=== PATIENT | female | born 1970 | race Caucasian/White ===

== ENCOUNTER → 2016-04-18 | Outpatient (CLI) | payer OTHER ==
[2016-04-18 14:05] LABS: ALBUMIN 3.8 GM/DL (3.2-5.2); ALBUMIN/GLOBULIN RATIO 1.12 (1.00-1.93); ALKALINE PHOSPHATASE 67 U/L (45-117); ALT/SGPT 25 U/L (12-78); ANION GAP 9 MEQ/L (8-16); AST/SGOT 13 U/L (15-37); BILIRUBIN,TOTAL 0.2 MG/DL (0.2-1.0); BLOOD UREA NITROGEN 21 MG/DL (7-18); CALCIUM LEVEL 9.3 MG/DL (8.5-10.1); CARBON DIOXIDE LEVEL 29 MEQ/L (21-32); CHLORIDE LEVEL 102 MEQ/L (98-107); CHOLESTEROL LEVEL 254 MG/DL (<200); CREATININE FOR GFR 0.98 MG/DL (0.55-1.02); GLOMERULAR FILTRATION RATE > 60.0 (>58); GLUCOSE, FASTING 99 MG/DL (70-105); SODIUM LEVEL 140 MEQ/L (136-145); TOTAL PROTEIN 7.2 GM/DL (6.4-8.2); TRIGLYCERIDES LEVEL 323 MG/DL (<150)
== END ==
LOC: M WUC 08:59
PROVIDERS: ATTEND Family Medicine
DX: E78.2 Mixed hyperlipidemia (principal)

== ENCOUNTER → 2016-05-17 | Outpatient (CLI) | payer OTHER ==
[2016-05-17 13:12] LABS: FREE T4 0.94 NG/DL (0.76-1.46)
== END ==
LOC: M WUC 10:02
PROVIDERS: ATTEND Internal Medicine Endocrinology, Diabetes & Metabolism
DX: E06.3 Autoimmune thyroiditis (principal)

== ENCOUNTER → 2016-07-15 | Outpatient (CLI) | payer OTHER | LOC: M WUC 08:34 | PROVIDERS: ATTEND Physician Assistant | DX: E55.9 Vitamin D deficiency, unspecified (principal); E78.2 Mixed hyperlipidemia ==

== ENCOUNTER → 2016-07-19 | Outpatient (REF) | payer OTHER | LOC: M LAB REF 15:55 | PROVIDERS: ATTEND Family Medicine | DX: J02.0 Streptococcal pharyngitis (principal) ==

== ENCOUNTER → 2016-09-05 | Outpatient (CLI) | payer OTHER ==
[2016-09-05 17:31] LABS: ESTRADIOL 131.8 PG/ML; FREE T4 0.82 NG/DL (0.76-1.46); LUTEINIZING HORMONE 21.2 mIU/mL; PROGESTERONE 0.2 NG/ML; PROLACTIN 8.4 NG/ML; THYROXINE (T4) 7.2 UG/DL (4.5-12.0)
[2016-09-05 17:32] LABS: FOLLICLE STIMULATING HORMONE 24.5 mIU/mL
== END ==
LOC: M WUC 12:08
PROVIDERS: ATTEND Internal Medicine Endocrinology, Diabetes & Metabolism
DX: N92.6 Irregular menstruation, unspecified (principal); E06.3 Autoimmune thyroiditis

== ENCOUNTER → 2017-03-22 | Outpatient (REF) | payer OTHER ==
[2017-03-22 16:33] LABS: APPEARANCE, URINE CLEAR (CLEAR); BACTERIA, URINE AUTO 1+ (NEGATIVE); BILIRUBIN, URINE AUTO NEGATIVE (NEGATIVE); BLOOD, URINE BLOOD NEGATIVE (NEGATIVE); COLOR, URINE YELLOW (YELLOW); GLUCOSE, URINE (UA) AUTO NEGATIVE (NEGATIVE); KETONE, URINE AUTO NEGATIVE (NEGATIVE); LEUKOCYTE ESTERASE, URINE AUTO TRACE (NEGATIVE); NITRITE, URINE AUTO NEGATIVE (NEGATIVE); PROTEIN, URINE AUTO NEGATIVE (NEGATIVE); RBC, URINE AUTO 0 /HPF (0-3); SPECIFIC GRAVITY URINE AUTO 1.008 (1.002-1.035); SQUAMOUS EPITHELIAL CELL UR AU 1 /HPF (0-6); UROBILINOGEN, URINE AUTO 0.2 mg/dL (0.0-2.0); WBC, URINE AUTO 4 /HPF (0-3)
== END ==
LOC: M LAB 15:46
DX: N39.0 Urinary tract infection, site not specified (principal)
CPT/HCPCS: 81001

== ENCOUNTER → 2017-03-24 | Outpatient (CLI) | payer OTHER ==
[2017-03-24 17:29] LABS: FOLLICLE STIMULATING HORMONE 76.4 mIU/mL; LUTEINIZING HORMONE 30.9 mIU/mL; TOTAL 25(OH) VITAMIN D 27.7 NG/ML (30.0-100.0)
[2017-03-24 17:39] LABS: ALBUMIN 4.3 GM/DL (3.2-5.2); ALBUMIN/GLOBULIN RATIO 1.34 (1.00-1.93); ALKALINE PHOSPHATASE 61 U/L (45-117); ALT/SGPT 53 U/L (12-78); AMYLASE 52 U/L (25-115); ANION GAP 6 MEQ/L (8-16); AST/SGOT 24 U/L (7-37); BILIRUBIN,TOTAL 0.2 MG/DL (0.2-1.0); BLOOD UREA NITROGEN 21 MG/DL (7-18); CALCIUM LEVEL 9.9 MG/DL (8.5-10.1); CARBON DIOXIDE LEVEL 30 MEQ/L (21-32); CHLORIDE LEVEL 105 MEQ/L (98-107); CREATININE FOR GFR 0.84 MG/DL (0.55-1.02); FREE T4 1.18 NG/DL (0.76-1.46); GLOMERULAR FILTRATION RATE > 60.0 (>58); GLUCOSE, FASTING 96 MG/DL (70-100); LIPASE 142 U/L (73-393); POTASSIUM SERUM 4.2 MEQ/L (3.5-5.1); SODIUM LEVEL 141 MEQ/L (136-145); TOTAL PROTEIN 7.5 GM/DL (6.4-8.2)
[2017-03-24 17:47] LABS: HEMATOCRIT 39.6 % (36.0-47.0); HEMOGLOBIN 12.8 g/dl (12.0-16.0); MEAN CORPUSCULAR HEMOGLOBIN 28.3 pg (27.0-33.0); MEAN CORPUSCULAR HGB CONC 32.3 g/dl (32.0-36.5); MEAN CORPUSCULAR VOLUME 87.4 fl (80.0-96.0); PLATELET COUNT, AUTOMATED 328 10^3/uL (150-450); RED BLOOD COUNT 4.53 10^6/uL (4.00-5.40); WHITE BLOOD COUNT 5.6 10^3/uL (4.0-10.0)
[2017-03-24 18:52] LABS: ESTIMATED AVERAGE GLUCOSE 123 MG/DL (60-110); HEMOGLOBIN A1c 5.9 %
== END ==
LOC: M WUC 11:46
DX: N91.1 Secondary amenorrhea (principal); R10.11 Right upper quadrant pain; Z13.1 Encounter for screening for diabetes mellitus; E55.9 Vitamin D deficiency, unspecified; Z13.0 Encounter for screening for diseases of the blood and blood-forming organs and certain disorders involving the immune mechanism
CPT/HCPCS: 82150

== ENCOUNTER → 2017-04-02 | Outpatient (REF) | payer OTHER | LOC: M LAB REF 13:05 | DX: R30.0 Dysuria (principal) ==

== ENCOUNTER → 2017-09-09 | Outpatient (REF) | payer OTHER ==
[2017-09-11 14:44] LABS: HPV HYBRID CAPTURE II Negative (Negative)
== END ==
LOC: M LAB REF 11:07
DX: Z01.419 Encounter for gynecological examination (general) (routine) without abnormal findings (principal); Z11.51 Encounter for screening for human papillomavirus (HPV)

== ENCOUNTER → 2017-09-12 | Outpatient (CLI) | payer OTHER ==
[2017-09-12 07:34] LABS: ESTIMATED AVERAGE GLUCOSE 126 MG/DL (60-110)
[2017-09-12 08:09] LABS: CHOLESTEROL LEVEL 312 MG/DL (<200); FREE T4 0.81 NG/DL (0.76-1.46); HDL CHOLESTEROL 39 MG/DL (>40); NON-HDL-C 273 MG/DL; TRIGLYCERIDES LEVEL 475 MG/DL (<150)
[2017-09-12 09:42] LABS: LUTEINIZING HORMONE 30.4 mIU/mL; PROLACTIN 9.3 NG/ML
[2017-09-12 09:43] LABS: ESTRADIOL 28.7 PG/ML; FOLLICLE STIMULATING HORMONE 56.8 mIU/mL
[2017-09-15 08:58] LABS: GLUCOSE, FASTING 118 MG/DL (70-100)
== END ==
LOC: M LAB 06:33
DX: N91.2 Amenorrhea, unspecified (principal)
CPT/HCPCS: 83001

== ENCOUNTER → 2018-01-01 | Outpatient (REF) | payer OTHER ==
[2018-01-01 14:02] LABS: BASO % 0.4 % (0.0-1.0); EOS # 0.1 10^3/uL (0.0-0.50); EOS % 1.1 % (0.0-3.0); HEMATOCRIT 41.4 % (36.0-47.0); HEMOGLOBIN 13.4 g/dl (12.0-15.5); IMMATURE GRANULOCYTE % 0.1 % (0-3.0); LYMPH # 1.4 10^3/uL (1.5-4.5); LYMPH % 18.6 % (24.0-44.0); MEAN CORPUSCULAR HEMOGLOBIN 27.7 pg (27.0-33.0); MEAN CORPUSCULAR HGB CONC 32.4 g/dl (32.0-36.5); MEAN CORPUSCULAR VOLUME 85.7 fl (80.0-96.0); MONO # 0.3 10^3/uL (0.0-0.8); MONO % 4.3 % (0.0-5.0); NEUTROPHILS # 5.6 10^3/uL (1.8-7.7); NEUTROPHILS % 75.5 % (36.0-66.0); PLATELET COUNT, AUTOMATED 322 10^3/uL (150-450); RED BLOOD COUNT 4.83 10^6/uL (4.00-5.40); RED CELL DISTRIBUTION WIDTH 11.7 % (11.5-14.5); WHITE BLOOD COUNT 7.4 10^3/uL (4.0-10.0)
[2018-01-01 14:13] LABS: ALBUMIN 4.7 GM/DL (3.2-5.2); ALBUMIN/GLOBULIN RATIO 1.31 (1.00-1.93); ALKALINE PHOSPHATASE 59 U/L (45-117); ALT/SGPT 29 U/L (12-78); ANION GAP 7 MEQ/L (8-16); AST/SGOT 13 U/L (7-37); BILIRUBIN,TOTAL 0.3 MG/DL (0.2-1.0); BLOOD UREA NITROGEN 21 MG/DL (7-18); CALCIUM LEVEL 9.8 MG/DL (8.5-10.1); CARBON DIOXIDE LEVEL 28 MEQ/L (21-32); CHLORIDE LEVEL 103 MEQ/L (98-107); CREATININE FOR GFR 0.74 MG/DL (0.55-1.30); GLOMERULAR FILTRATION RATE > 60.0 (>58); GLUCOSE, FASTING 111 MG/DL (70-100); POTASSIUM SERUM 4.3 MEQ/L (3.5-5.1); SODIUM LEVEL 138 MEQ/L (136-145); TOTAL PROTEIN 8.3 GM/DL (6.4-8.2)
[2018-01-01 14:46] LABS: ESTIMATED AVERAGE GLUCOSE 111 MG/DL (60-110); HEMOGLOBIN A1c 5.5 %
[2018-01-02 14:27] LABS: INSULIN LEVEL 23.1 uIU/mL (2.6-24.9)
== END ==
LOC: M LABDRAW1 13:43
DX: R73.03 Prediabetes (principal); M54.2 Cervicalgia; R59.0 Localized enlarged lymph nodes

== ENCOUNTER → 2018-09-25 | Outpatient (CLI) | payer OTHER ==
[2018-09-25 12:15] LABS: HEMOGLOBIN A1c 5.5 %
[2018-09-25 12:33] LABS: ALT/SGPT 36 U/L (12-78); BILIRUBIN,TOTAL 0.2 MG/DL (0.2-1.0); BLOOD UREA NITROGEN 20 MG/DL (7-18); CALCIUM LEVEL 9.4 MG/DL (8.5-10.1); CARBON DIOXIDE LEVEL 30 MEQ/L (21-32); CHLORIDE LEVEL 105 MEQ/L (98-107); CHOLESTEROL LEVEL 258 MG/DL (<200); CREATININE FOR GFR 0.85 MG/DL (0.55-1.30); FREE T4 0.89 NG/DL (0.76-1.46); GLOMERULAR FILTRATION RATE > 60.0 (>58); GLUCOSE, FASTING 103 MG/DL (70-100); HDL CHOLESTEROL 55 MG/DL (>40); LDL CHOLESTEROL 175 MG/DL (<100); NON-HDL-C 203 MG/DL; POTASSIUM SERUM 4.7 MEQ/L (3.5-5.1); SODIUM LEVEL 140 MEQ/L (136-145); TOTAL PROTEIN 7.1 GM/DL (6.4-8.2); TRIGLYCERIDES LEVEL 141 MG/DL (<150)
== END ==
LOC: M SMT 09:32
PROVIDERS: ATTEND Physician Assistant
DX: R73.03 Prediabetes (principal); E06.3 Autoimmune thyroiditis

== ENCOUNTER → 2019-02-07 | Outpatient (REF) | payer OTHER | LOC: M LAB REF 11:43 | PROVIDERS: ATTEND Nurse Practitioner Family | DX: R05 Cough (principal) ==

== ENCOUNTER → 2019-03-02 | Outpatient (CLI) | payer OTHER ==
[2019-03-02 18:14] LABS: HEMOGLOBIN A1c 5.5 %
[2019-03-02 18:31] LABS: ALT/SGPT 47 U/L (12-78); BILIRUBIN,TOTAL 0.3 MG/DL (0.2-1.0); BLOOD UREA NITROGEN 20 MG/DL (7-18); CALCIUM LEVEL 9.1 MG/DL (8.5-10.1); CARBON DIOXIDE LEVEL 27 MEQ/L (21-32); CHLORIDE LEVEL 105 MEQ/L (98-107); CREATININE FOR GFR 0.84 MG/DL (0.55-1.30); FREE T4 1.15 NG/DL (0.76-1.46); GLOMERULAR FILTRATION RATE > 60.0 (>58); GLUCOSE, FASTING 87 MG/DL (70-100); POTASSIUM SERUM 4.6 MEQ/L (3.5-5.1); SODIUM LEVEL 140 MEQ/L (136-145); TOTAL PROTEIN 7.4 GM/DL (6.4-8.2)
== END ==
LOC: M WUC 11:47
PROVIDERS: ATTEND Family Medicine
DX: R73.03 Prediabetes (principal); E06.3 Autoimmune thyroiditis

== ENCOUNTER → 2019-04-06 | Outpatient (CLI) | payer OTHER ==
[2019-04-06 18:32] LABS: BASO % 0.6 % (0.0-1.0); EOS # 0.4 10^3/uL (0.0-0.5); EOS % 5.9 % (0.0-3.0); HEMATOCRIT 37.7 % (36.0-47.0); LYMPH # 2.4 10^3/uL (1.5-5.0); LYMPH % 37.7 % (24.0-44.0); MEAN CORPUSCULAR HEMOGLOBIN 28.3 pg (27.0-33.0); MEAN CORPUSCULAR HGB CONC 31.8 g/dl (32.0-36.5); MEAN CORPUSCULAR VOLUME 88.9 fl (80.0-96.0); MONO # 0.5 10^3/uL (0.0-0.8); MONO % 7.5 % (0.0-5.0); PLATELET COUNT, AUTOMATED 283 10^3/uL (150-450); RED BLOOD COUNT 4.24 10^6/uL (4.00-5.40); WHITE BLOOD COUNT 6.2 10^3/uL (4.0-10.0)
== END ==
LOC: M WUC 15:26
PROVIDERS: ATTEND Physician Assistant
DX: H92.02 Otalgia, left ear (principal)

== ENCOUNTER → 2019-09-03 | Outpatient (CLI) | payer OTHER ==
[2019-09-03 12:38] LABS: HEMOGLOBIN A1c 5.3 %
[2019-09-03 13:00] LABS: MALB URINE SIEMENS 27.9 MG/L; MAU/CREAT RATIO 15.8 MCG/MG (0.0-30.0)
[2019-09-03 13:11] LABS: BLOOD UREA NITROGEN 19 MG/DL (7-18); CALCIUM LEVEL 9.4 MG/DL (8.5-10.1); CARBON DIOXIDE LEVEL 27 MEQ/L (21-32); CHLORIDE LEVEL 107 MEQ/L (98-107); CHOLESTEROL LEVEL 267 MG/DL (<200); CHOLESTEROL RISK RATIO 5.235 (<5); CREATININE FOR GFR 0.79 MG/DL (0.55-1.30); GLOMERULAR FILTRATION RATE > 60.0 (>58); GLUCOSE, FASTING 106 MG/DL (70-100); HDL CHOLESTEROL 51 MG/DL (>40); LDL CHOLESTEROL 185 MG/DL (<100); NON-HDL-C 216 MG/DL; POTASSIUM SERUM 4.5 MEQ/L (3.5-5.1); SODIUM LEVEL 139 MEQ/L (136-145); THYROID STIMULATING HORMONE 0.732 uIU/ML (0.358-3.740); TRIGLYCERIDES LEVEL 154 MG/DL (<150)
== END ==
LOC: M WUC 10:52
PROVIDERS: ATTEND Internal Medicine
DX: R73.09 Other abnormal glucose (principal); E03.8 Other specified hypothyroidism; E04.2 Nontoxic multinodular goiter

== ENCOUNTER → 2019-09-03 | Outpatient (CLI) | payer OTHER ==
[2019-09-03 12:21] LABS: BASO % 0.8 % (0.0-1.0); EOS # 0.2 10^3/uL (0.0-0.5); EOS % 3.1 % (0.0-3.0); HEMATOCRIT 39.5 % (36.0-47.0); HEMOGLOBIN 12.9 g/dl (12.0-15.5); LYMPH # 2.1 10^3/uL (1.5-5.0); LYMPH % 40.1 % (24.0-44.0); MEAN CORPUSCULAR HEMOGLOBIN 28.5 pg (27.0-33.0); MEAN CORPUSCULAR HGB CONC 32.7 g/dl (32.0-36.5); MEAN CORPUSCULAR VOLUME 87.2 fl (80.0-96.0); MONO # 0.5 10^3/uL (0.0-0.8); MONO % 8.9 % (0.0-5.0); NEUTROPHILS # 2.4 10^3/uL (1.5-8.5); NEUTROPHILS % 46.9 % (36.0-66.0); PLATELET COUNT, AUTOMATED 280 10^3/uL (150-450); RED BLOOD COUNT 4.53 10^6/uL (4.00-5.40); WHITE BLOOD COUNT 5.2 10^3/uL (4.0-10.0)
== END ==
LOC: M WUC 10:48
PROVIDERS: ATTEND Family Medicine
DX: Z13.0 Encounter for screening for diseases of the blood and blood-forming organs and certain disorders involving the immune mechanism (principal)

== ENCOUNTER → 2020-11-30 | Outpatient (REF) | payer OTHER ==
[~2020-11-30] MED LIST: CIPR-249 PO; IBUP1TAB5 PO; SYNT112T2 PO
[2020-11-30 22:30] LABS: APPEARANCE, URINE CLEAR (CLEAR); BACTERIA, URINE AUTO NEGATIVE (NEGATIVE); BILIRUBIN, URINE AUTO NEGATIVE (NEGATIVE); BLOOD, URINE BLOOD NEGATIVE (NEGATIVE); COLOR, URINE YELLOW (YELLOW); GLUCOSE, URINE (UA) AUTO NEGATIVE (NEGATIVE); KETONE, URINE AUTO TRACE mg/dL (NEGATIVE); LEUKOCYTE ESTERASE, URINE AUTO NEGATIVE (NEGATIVE); MUCUS, URINE SMALL (NEGATIVE); NITRITE, URINE AUTO NEGATIVE (NEGATIVE); PROTEIN, URINE AUTO NEGATIVE (NEGATIVE); RBC, URINE AUTO 1 /HPF (0-3); SPECIFIC GRAVITY URINE AUTO 1.032 (1.002-1.035); SQUAMOUS EPITHELIAL CELL UR AU 1 /HPF (0-6); UROBILINOGEN, URINE AUTO 0.2 mg/dL (0.0-2.0); WBC, URINE AUTO 2 /HPF (0-3)
== END ==
LOC: M LAB REF 22:08
PROVIDERS: ATTEND Physician Assistant
DX: M54.5 Low back pain (principal)

== ENCOUNTER 2020-12-02 02:17 | Emergency (ER) | payer OTHER ==
[~2020-12-02] VITALS: Ht 162.6 cm; Wt 94.3 kg
[2020-12-02] MEDS ORDERED: CIPR-249 PO (02:25)
[2020-12-02] MEDS ORDERED: IBUP1TAB5 PO (02:25)
[2020-12-02] MEDS ORDERED: SYNT112T2 PO (02:25)
[2020-12-02 04:08] LABS: BASO % 0.5 % (0.0-1.0); EOS # 0.2 10^3/uL (0.0-0.5); EOS % 3.7 % (0.0-3.0); HEMATOCRIT 36.8 % (36.0-47.0); LYMPH # 2.5 10^3/uL (1.5-5.0); LYMPH % 37.9 % (24.0-44.0); MEAN CORPUSCULAR HEMOGLOBIN 28.3 pg (27.0-33.0); MEAN CORPUSCULAR HGB CONC 32.6 g/dl (32.0-36.5); MEAN CORPUSCULAR VOLUME 86.8 fl (80.0-96.0); MONO # 0.6 10^3/uL (0.0-0.8); MONO % 8.7 % (2.0-8.0); NEUTROPHILS # 3.2 10^3/uL (1.5-8.5); PLATELET COUNT, AUTOMATED 282 10^3/uL (150-450); RED BLOOD COUNT 4.24 10^6/uL (4.00-5.40); WHITE BLOOD COUNT 6.5 10^3/uL (4.0-10.0)
[2020-12-02 04:42] LABS: ALT/SGPT 32 U/L (12-78); BILIRUBIN,DIRECT < 0.1 MG/DL (0.0-0.2); BILIRUBIN,TOTAL 0.3 MG/DL (0.2-1.0); BLOOD UREA NITROGEN 13 MG/DL (7-18); CARBON DIOXIDE LEVEL 30 MEQ/L (21-32); CHLORIDE LEVEL 107 MEQ/L (98-107); CREATININE FOR GFR 0.96 MG/DL (0.55-1.30); GLOMERULAR FILTRATION RATE > 60.0 (>51); GLUCOSE, FASTING 113 MG/DL (70-100); LIPASE 84 U/L (73-393); POTASSIUM SERUM 4.7 MEQ/L (3.5-5.1); SODIUM LEVEL 140 MEQ/L (136-145); TOTAL PROTEIN 7.1 GM/DL (6.4-8.2)
--- NOTE | 2020-12-02 07:44 | REPVR ---
PROCEDURE INFORMATION: Exam: CT Abdomen And Pelvis Without Contrast Exam date and time: 12/02/2020 5:40 AM Age: 50 years old Clinical indication: Abdominal pain; Flank; Right; Additional info: Concern for nephrolithiasis TECHNIQUE: Imaging protocol: Computed tomography of the abdomen and pelvis without contrast. Radiation optimization: All CT scans at this facility use at least one of these dose optimization techniques: automated exposure control; mA and/or kV adjustment per patient size (includes targeted exams where dose is matched to clinical indication); or iterative reconstruction. COMPARISON: PELVIS NON-OB COMPLETE US 03/10/2015 10:06 AM FINDINGS: Liver: Steatosis. Gallbladder and bile ducts: Status post cholecystectomy. Pancreas: Normal. No ductal dilation. Spleen: Left upper quadrant splenule. Adrenal glands: Normal. No mass. Kidneys and ureters: Exophytic left renal cyst. Stomach and bowel: Unremarkable. No obstruction. No mucosal thickening. Appendix: No evidence of appendicitis. Intraperitoneal space: Unremarkable. No free air. No significant fluid collection. Vasculature: Unremarkable. No abdominal aortic aneurysm. Lymph nodes: Unremarkable. No enlarged lymph nodes. Urinary bladder: Unremarkable as visualized. Reproductive: Status post bilateral fallopian tube ligation. Bones/joints: Unremarkable. No acute fracture. Soft tissues: Unremarkable. IMPRESSION: No hydronephrosis or nephrolithiasis bilaterally. No bowel obstruction. Partially visualized normal appendix. Steatosis. COMMENTS: Consistent with the [employer]'s Incidental Findings Committee white paper (J Am Jackson Radiol 2018): Any incidental renal lesion less than 1 cm or classified as too small to characterize, or any incidental cystic renal lesion characterized as simple-appearing, is likely benign. No follow-up imaging is recommended for these lesions per consensus recommendations based on imaging criteria. Electronically signed by: Mihir Graham On 12/02/2020 07:44:11 AM
[2020-12-02 08:04] VITALS: BP 122/64
== END 2020-12-02 08:06 | disposition home or self-care (01) ==
LOC: M ED 02:17
DX: R10.9 Unspecified abdominal pain (principal); R11.0 Nausea; E03.9 Hypothyroidism, unspecified; Z88.2 Allergy status to sulfonamides; Z88.8 Allergy status to other drugs, medicaments and biological substances; Z79.899 Other long term (current) drug therapy; Z79.890 Hormone replacement therapy

== ENCOUNTER → 2020-12-21 | Outpatient (CLI) | payer OTHER ==
--- NOTE | 2020-12-21 08:16 | REP ---
INDICATION: UPPER ABD PAIN, PELVIC PAIN COMPARISON: CT dated 12/02/2020 TECHNIQUE: Real time jackman scale ultrasound examination using curved array transducer. FINDINGS: Liver is normal in contour, size, and echogenicity without focal hepatic lesions identified. Incidental benign hepatic cyst identified. Pancreas is incompletely evaluated due to interposed bowel gas. The gallbladder is surgically absent. No biliary ductal dilatation is appreciated and the common bile duct measures 6.0 mm diameter. Right kidney is normal in reniform shape without hydronephrosis and measures 11.3 x 5.2 x 4.7 cm. No ascites in the visualized right upper quadrant. Visualized abdominal aorta appears normal. IMPRESSION: Normal limited right upper quadrant ultrasound <Electronically signed by Johnnie Harrison > 12/21/20 1357
--- NOTE | 2020-12-25 04:46 | REP ---
INDICATION: UPPER ABD PAIN, PELVIC PAIN COMPARISON: None. TECHNIQUE: Transabdominal pelvic ultrasound followed by transvaginal examination for better evaluation of the endometrium and adnexa with color Doppler evaluation of the ovaries. FINDINGS: Bladder is unremarkable and measures 10.9 x 4.9 x 9.0 cm. Heterogeneous anteverted uterus measures 8.3 x 3.5 x 5.6 cm. The endometrial complex measures 2.7 mm thickness. No discrete uterine or endometrial abnormalities are appreciated. Right ovary is not visualized. Left ovary appears normal and measures 2.0 x 1.2 x 2.0 cm (RI 0.74). No pelvic fluid or adnexal mass lesion. IMPRESSION: 1. As above. No acute pelvic pathology appreciated. <Electronically signed by Johnnie Harrison > 12/25/20 2502
== END ==
LOC: M RAD 07:28
PROVIDERS: ATTEND Physician Assistant
DX: R10.10 Upper abdominal pain, unspecified (principal); R10.2 Pelvic and perineal pain; Z90.49 Acquired absence of other specified parts of digestive tract

== ENCOUNTER → 2021-01-11 | Outpatient (CLI) | payer OTHER ==
[~2021-01-11] MED LIST changes: +D3 M1CAP2 PO; +OMEP-221 PO
== END ==
LOC: M LABSMTC 09:59
PROVIDERS: ATTEND Anesthesiology
DX: Z01.818 Encounter for other preprocedural examination (principal); Z11.52 Encounter for screening for COVID-19

== ENCOUNTER 2021-01-16 08:01 | Day surgery (SDC) | payer OTHER ==
[~2021-01-16] VITALS: Ht 165.1 cm; Wt 92.9 kg
[~2021-01-16 08:01] MED LIST changes: +NS 1,000 ML IV ONE
--- OUTSIDE RECORDS SUMMARY | 2021-01-16 08:05 | CCD | Continuity of Care Document ---
Author Author Inocencia ALVAREZ D.O. Organization Unknown Address [address] [place] [address] Phone [phone] Care Team Providers Care Side Door Man Name Role Phone Angela Alvarez D.O. AUTM Tammy Zeng M.D. AUTM [phone] Raji Savage M.D. AUTM [phone] Raymundo Amanda M.D. AUTM [phone] Problems Active Problems Provider Date Neoplastic disease Angela Alvarez D.O. Onset: 2015 Gavin thyroiditis Angela Alvarez D.O. Onset: 08/2015 Hyperlipidemia screening Angela Alvarez D.O. Onset: 1 Vitamin D deficiency Angela Alvarez D.O. Onset: 12/06 Suspected hypothyroidism Angela Alvarez D.O. Onset: 1 Suspected sickle cell disease Angela Alvarez D.O. Ons et: 12/07/2015 Adult health examination Angela Alvarez D.O. Onset: 1 03/13/2015 Mixed hyperlipidemia Angela Alvarez D.O. Onset: 01/11 Obesity Angela Alvarez D.O. Onset: 2016 Body mass index 30+ - obesity Angela Alvarez D.O. Ons et: 07/19/2016 Social History Type Date Description Comments Sex Unknown ETOH Use Rarely consumes alcohol Tobacco Use Start: Unknown Patient has never smoked Recreational Drug Use Denies Drug Use Smoking Status Reviewed: 10/20/20 Patient has never smoked Exercise Type/Frequency Walks sporadically Exercise Type/Frequency Exercises sporadically G ym Sun Exposure Uses sunscreen Seat Belt/Car Seat Always uses seat belt Allergies and adverse reactions Active Allergies Criticality Reaction | Severity Comments Date Bactrim Unable to assess criticality Urticaria 12/07/2015 Levaquin Unable to assess criticality Nightmare, Dizziness 12/07/2015 Crestor Unable to assess criticality Myalgias | Severe 12/07/2015 Lipitor Unable to assess criticality leg swelling | Severe 12/07/2015 Medications Active Medications SIG Qnty Indications Ordering Provide r Date Omeprazole 40mg Capsules DR 1 by mouth every day 90caps R10.10 Angela Alvarez D.O. 12/13 Shingrix 50mcg/0.5ML Suspension Re c inject subcutaneous times one 1units Angela Alvarez D.O . 10/20/2020 Vitamin D3 5000Unit Tablets to be taken by mouth once a day 90tabs E55.9 Angela Alvarez D.O. 07/01 Synthroid 112mcg Tablets take 1 tablet by mouth every day 90tabs Andre Ann.O. Magnesium Phosphate Dibasic Trihydrate Powder 8 sublingual tabs nightly Unknown Biotin 2500mcg Capsules 1 tablet by mouth once per day Unknown Immunizations CPT Code Status Date Vaccine Lot # [id number] Given 10/20/2020 TB Intradermal Test [id number] Given 08/27/2019 TB Intradermal Test 79077 Given 08/27/2019 TB Intradermal Test [id number] 00196 Given 03/23/2018 TB Intradermal Test [id number] Vital Signs Date Vital Result Comment 12/13/2020 1:02pm BP Systolic 132 mmHg BP Diastolic 90 mmHg Height 64.2 inches 5'4.20" Weight 208.00 lb BMI (Body Mass Index) 35.5 kg/m2 Heart Rate 91 /min Respiratory Rate 20 /min Body Temperature 97.9 F O2 % BldC Oximetry 99 % [place] Body Weight 120 lb 12/04/2020 1:16pm BP Systolic 126 mmHg BP Diastolic 76 mmHg Height 64.2 inches 5'4.20" Weight 208.38 lb BMI (Body Mass Index) 35.5 kg/m2 Heart Rate 85 /min Respiratory Rate 18 /min Body Temperature 98.8 F O2 % BldC Oximetry 97 % [place] Body Weight 120 lb Results Test Acquired Date Facility Test Result H/L Range Note Coronavirus 2019 Nasopharygeal 01/11/2021 [facility] Outpa tient Testing (Registration) [address] [place] [address] [phone] Coronavirus 2019 Nasopharygeal ASSAY INFORMATIO <SEE N OTE> 1 CBC With Differential 12/02/2020 [facility] Outpatient Carmen ting (Registration) [address] [place], [place] [id number] [phone] White Blood Count 6.5 10 Normal 4.0-10.0 Red Blood Count 4.24 10 Normal 4.00-5.40 Hemoglobin 12.0 g/dL Normal 12.0-15.5 Hematocrit 36.8 % Normal 36.0-47.0 Mean Corpuscular Volume 86.8 fl Normal 80.0-96.0 Mean Corpuscular Hemoglobin 28.3 pg Normal 27.0-33.0 Mean Corpuscular HGB Conc 32.6 g/dL Normal 32.0-36.5 Red Cell Distribution Width 12.4 % Normal 11.5-14.5 Platelet Count, Automated 282 10 Normal 150-450 Neutrophils % 49.0 % Normal 36.0-66.0 Lymph % 37.9 % Normal 24.0-44.0 Reynolds % 8.7 % High 2.0-8.0 Eos % 3.7 % High 0.0-3.0 Baso % 0.5 % Normal 0.0-1.0 Immature Granulocyte % 0.2 % Normal 0-3.0 Nucleated Red Blood Cell % 0.0 % Normal 0-0 Neutrophils # 3.2 10 Normal 1.5-8.5 Lymph # 2.5 10 Normal 1.5-5.0 Reynolds # 0.6 10 Normal 0.0-0.8 Eos # 0.2 10 Normal 0.0-0.5 Baso # 0.0 10 Normal 0.0-0.2 Ua W/ Reflex To Culture 12/02/2020 [facility] Outpatient T esting (Registration) [address] [place] [address] [phone] Appearance, Urine RFX CLEAR Normal Clear Color, Urine RFX YELLOW Normal Yellow PH,Urine RFX 5.0 units Normal 5.0-9.0 Specific [place] Ur Auto RFX 1.009 Normal 1.002-1.035 Protein, Urine Auto RFX NEGATIVE mg/dL Normal Negative Glucose, Urine (Ua) Auto RFX NEGATIVE mg/dL Normal Negative Ketone, Urine Auto RFX NEGATIVE mg/dL Normal Negative Urobilinogen, Urine Auto RFX 0.2 mg/dL Normal 0.0-2.0 Bilirubin, Urine Auto RFX NEGATIVE Normal Negative Nitrite, Urine Auto RFX NEGATIVE Normal Negative Leukocyte Esterase Ur Auto RFX NEGATIVE Normal Negative Blood, Urine Blood RFX NEGATIVE Normal Negative WBC, Urine Auto RFX 1 /HPF Normal 0-3 RBC, Urine Auto RFX 1 /HPF Normal 0-3 Bacteria, Urine Auto RFX NEGATIVE Normal Negative Squam Epithelial Cell Ur Aurfx 2 /HPF Normal 0-6 Hyaline Cast, Urine Auto RFX 0 /LPF Normal 0-1 Liver Profile 12/02/2020 [facility] Outpatient Testi ng (Registration) [address] [place] [address] [phone] Ast/Sgot 25 U/L Normal 7-37 Alt/SGPT 32 U/L Normal 12-78 Alkaline Phosphatase 55 U/L Normal 45-117 Bilirubin,Total 0.3 mg/dL Normal 0.2-1.0 Bilirubin,Direct < 0.1 mg/dL Normal 0.0-0.2 Total Protein 7.1 GM/DL Normal 6.4-8.2 Albumin 4.0 GM/DL Normal 3.2-5.2 Albumin/Globulin Ratio 1.3 Normal 1.2-2.2 Basic Metabolic Profile 12/02/2020 [facility] Outpatient T esting (Registration) [address] [place] [address] [phone] Glucose, Fasting 113 mg/dL High 70-100 Blood Urea Nitrogen 13 mg/dL Normal 7-18 Creatinine For GFR 0.96 mg/dL Normal 0.55-1.30 Glomerular Filtration Rate > 60.0 Normal >51 2 Sodium Level 140 mEq/L Normal 136-145 Potassium Serum 4.7 mEq/L Normal 3.5-5.1 3 Chloride Level 107 mEq/L Normal 98-107 Carbon Dioxide Level 30 mEq/L Normal 21-32 Anion Gap 3 mEq/L Low 8-16 Calcium Level 9.0 mg/dL Normal 8.5-10.1 Laboratory test finding 12/02/2020 [facility] Outpatient T celesteing (Registration) [address] [place], [place] [id number] [phone] Lipase 84 U/L Normal 73-393 1 ASSAY INFORMATION: Real Time RT-PCR NOTE: The COVID-19 assay has been cleared by the U.S. Food and Drug Administration under the Emergency Use Authorization (EUA). [facility] and [facility] are designated as high complexity laboratories by the Clinical Laboratory Improvement Amendments of 1988(CLIA) and are qualified to perform this test. Not Detected 2 Units are mL/min/1.73 m2 Chronic Kidney Disease Staging per NKF: Stage I & II GFR >=60 Normal to Mildly Decreased Stage III GFR 30-59 Moderately Decreased Stage IV GFR 15-29 Severely Decreased Stage V GFR <15 Very Little GFR Left ESRD GFR <15 on LEAD PRESSMAN 3 Testing was performed on a S LIGHTLY hemolyzed specimen. Suggest recollection of specimen for more accurate test results. Procedures Date Code Description Status 12/13/2020 03357 Office/Outpatient Established Mo d MDM 30-39 Min Completed 12/04/2020 15530 Office/Outpatient Established Mo d MDM 30-39 Min Completed 10/23/2020 79217 Office/Outpatient Established Mi nimal Problem(S) Completed 10/20/2020 64166 Preventive Visit Est 40-64 Yrs C ompleted Medical Devices Description No Information Available Encounters Type Date Location Provider Dx Diagnosis Office Visit 12/13/2020 1:00p Family [facility] KRISTEN Pineda R10.10 Upper abdominal pain, unspec ified R10.2 Pelvic and perineal pain Office Visit 12/04/2020 1:20p [facility] KRISTEN Meeks M54.50 Low back pain, unspecified K59.00 Constipation, unspecified Office Visit 10/23/2020 8:00a [facility] Momo glass Z11.1 Encounter for screening for respiratory tuberculosis Office Visit 10/20/2020 8:40a [facility] Angela Alvarez D.O. Z00.00 Encntr for general adult med ical exam w/o abnormal findings Z11.1 Encounter for screening for respiratory tuberculosis Z12.11 Encounter for screening for malignant neoplasm of colon Z13.29 Encounter for screening for oth suspected endocrine disorder Z13.220 Encounter for screening for lipoid disorders Z13.0 Encntr screen for dis of the bld/bld-form org/immun mechnsm Z82.49 Family hx of ischem heart di s and oth dis of the circ sys E06.3 Autoimmune thyroiditis Z88.1 Allergy status to other anti biotic agents Z88.8 Allergy status to other drug /meds/biol subst E78.2 Mixed hyperlipidemia E66.09 Other obesity due to excess calories Z68.34 Body mass index [BMI] 34.0-3 4.9, adult Assessments Date Code Description Provider 12/13/2020 R10.10 Upper abdominal pain, unspecifie d KRISTEN Pineda 12/13/2020 R10.2 Pelvic and perineal pain KRISTEN Pineda 12/04/2020 M54.50 Low back pain, unspecified [facility] n KRISTEN Metzger 12/04/2020 K59.00 Constipation, unspecified KRISTEN Meeks 10/23/2020 Z11.1 Encounter for screening for resp iratory tuberculosis Nurse 10/20/2020 Z00.00 Encounter for genera l adult medical examination without abnormal findings Angela Alvarez D.O. 10/20/2020 Z11.1 Encounter for screening for resp iratory tuberculosis Angela Alvarez D.O. 10/20/2020 Z12.11 Encounter for screening for marko gnant neoplasm of colon Angela Alvarez D.O. 10/20/2020 Z13.29 Encounter for screen ing for other suspected endocrine disorder Angela Alvarez D.O. 10/20/2020 Z13.220 Encounter for screening for lipo id disorders Angela Meza D.O. 10/20/2020 Z13.0 Encounter for screen ing for diseases of the blood and blood- forming organs and certain disorders involving the immune mechanism Angela Alvarez D.O. 10/20/2020 Z82.49 Family history of is chemic heart disease and other diseases of the circulatory system Angela Alvarez D.O. 10/20/2020 E06.3 Autoimmune thyroiditis Angela Travis D.O. 10/20/2020 Z88.1 Allergy status to other antibiot ic agents Angela Alvarez D.O. 10/20/2020 Z88.8 Allergy status to other drugs, m edicaments and biological brown Angela Alvarez D.O. 10/20/2020 E78.2 Mixed hyperlipidemia Angela Calvin D.O. 10/20/2020 E66.09 Other obesity due to excess gio charlie Angela Alvarez D.O. 10/20/2020 Z68.34 Body mass index [BMI] 34.0-34.9, adult Angela Alvarez D.O. Plan of Treatment Future Appointment(s):* 01/19/2021 1:20 pm - KRISTEN Pineda at [facility] * 10/22/2021 11:00 am - Angela Alvarez D.O. at [facility] Functional Status Description No Information Available Mental Status Description No Information Available Referrals Refer to Reason for Referral Status Appt Date Raji Savage M.D. This is a 49 year female wit h family history of ischemic heart disease who would like to be evaluated based on risk factors. Please evaluate and treat. Sent 02/14/2021 [facility] [address] [place] [address] [phone] Raymundo Amanda M.D. This is a 49 year old female due for screening colonoscopy. Please evaluate and treat. Closed 10/26/2020 [address] [facility] [address] [place] [address] [phone]
--- OUTSIDE RECORDS SUMMARY | 2021-01-16 08:05 | CCD | Continuity of Care Document ---
Author Author Inocencia ALVAREZ D.O. Organization Unknown Address [address] [place] [address] Phone [phone] Care Team Providers Care Rail Car Painter/Sandblaster Name Role Phone Angela Alvarez D.O. AUTM Tammy Zeng M.D. AUTM [phone] Raji Savage M.D. AUTM [phone] Raymundo Amanda M.D. AUTM [phone] Problems Active Problems Provider Date Neoplastic disease [...] Seat Belt/Car Seat Always uses seat belt Allergies, Adverse Reactions, Alerts Active Allergies Criticality Reaction | Severity Comments Date Bactrim Unable to assess criticality Urticaria 12/07/2015 Levaquin Unable to assess criticality Nightmare, Dizziness 12/07/2015 Crestor Unable to assess criticality Myalgias | Severe 12/07/2015 Lipitor Unable to assess criticality leg swelling | Severe 12/07/2015 Medications Active Medications SIG Qnty Indications Ordering Provide r Date Shingrix 50mcg/0.5ML Suspension Re c inject subcutaneous times one 1units Angela Alvarez D.O Rudy 10/20/2020 Vitamin D3 5000Unit Tablets to be taken by mouth once a day 90tabs E55.9 Angela Alvarez D.O. 07/01 Synthroid 112mcg Tablets take 1 tablet by mouth every day 90tabs Angela Alvarez D.O. Magnesium Phosphate Dibasic Trihydrate Powder 8 sublingual tabs nightly Unknown Biotin 2500mcg Capsules 1 tablet by mouth once per day Unknown Immunizations CPT Code Status Date Vaccine Lot # [id number] Given 10/20/2020 TB Intradermal Test [id number] Given 08/27/2019 TB Intradermal Test 24449 Given 08/27/2019 TB Intradermal Test [id number] 65046 Given 03/23/2018 TB Intradermal Test [id number] Vital Signs Date Vital Result Comment 10/20/2020 8:46am BP Systolic 126 mmHg BP Diastolic 84 mmHg Height 64.2 inches 5'4.20" Weight 203.00 lb BMI (Body Mass Index) 34.6 kg/m2 Heart Rate 76 /min Respiratory Rate 18 /min Body Temperature 98.1 F O2 % BldC Oximetry 99 % [place] Body Weight 120 lb 03/01/2020 9:05am BP Systolic 118 mmHg BP Diastolic 78 mmHg Height 64.2 inches 5'4.20" Weight 224.00 lb BMI (Body Mass Index) 38.2 kg/m2 Heart Rate 90 /min Respiratory Rate 20 /min Body Temperature 98.3 F O2 % BldC Oximetry 98 % [place] Body Weight 120 lb Results Test Acquired Date Facility Test Result H/L Range Note CBC With Differential 12/02/2020 [facility] Outpatient Carmen bravo (Registration) [address] [place] [address] [phone] White Blood Count 6.5 10 Normal 4.0-10.0 [...] 36.0-66.0 Lymph % 37.9 % Normal 24.0-44.0 [place] % 8.7 % High 2.0-8.0 Eos % 3.7 % High 0.0-3.0 Baso % 0.5 % Normal 0.0-1.0 Immature Granulocyte % 0.2 % Normal 0-3.0 Nucleated Red Blood Cell % 0.0 % Normal 0-0 Neutrophils # 3.2 10 Normal 1.5-8.5 Lymph # 2.5 10 Normal 1.5-5.0 Jewell # 0.6 10 Normal 0.0-0.8 Eos # 0.2 10 Normal 0.0-0.5 Baso # 0.0 10 Normal 0.0-0.2 Ua W/ Reflex To Culture 12/02/2020 [facility] Outpatient T vlad (Registration) [address] [place] [address] [phone] Appearance, Urine RFX CLEAR Normal Clear Color, Urine RFX YELLOW Normal Yellow PH,Urine RFX 5.0 units Normal 5.0-9.0 Specific [place] Ur Auto RFX 1.009 Normal 1.002-1.035 Protein, [...] 0 /LPF Normal 0-1 Liver Profile 12/02/2020 [facility] Outpatient Testi ng (Registration) [address] [place] [address] [phone] Ast/Sgot 25 U/L Normal 7-37 Alt/SGPT 32 U/L Normal 12-78 Alkaline Phosphatase 55 U/L Normal 45-117 Bilirubin,Total 0.3 mg/dL Normal 0.2-1.0 Bilirubin,Direct < 0.1 mg/dL Normal 0.0-0.2 Total Protein 7.1 GM/DL Normal 6.4-8.2 Albumin 4.0 GM/DL Normal 3.2-5.2 Albumin/Globulin Ratio 1.3 Normal 1.2-2.2 Basic Metabolic Profile 12/02/2020 [facility] Outpatient T esting (Registration) [address] [place] [address] [phone] Glucose, Fasting 113 mg/dL High 70-100 Blood Urea Nitrogen 13 mg/dL Normal 7-18 Creatinine For GFR 0.96 mg/dL Normal 0.55-1.30 Glomerular Filtration Rate > 60.0 Normal >51 1 Sodium Level 140 mEq/L Normal 136-145 Potassium Serum 4.7 mEq/L Normal 3.5-5.1 2 Chloride Level 107 mEq/L Normal 98-107 Carbon Dioxide Level 30 mEq/L Normal 21-32 Anion Gap 3 mEq/L Low 8-16 Calcium Level 9.0 mg/dL Normal 8.5-10.1 Laboratory test finding 12/02/2020 [facility] Outpatient T esting (Registration) [address] [place] [address] [phone] Lipase 84 U/L Normal 73-393 1 Units are mL/min/1.73 m2 Chronic Kidney Disease Staging per NKF: Stage I & II GFR >=60 Normal to Mildly Decreased Stage III GFR 30-59 Moderately Decreased Stage IV GFR 15-29 Severely Decreased Stage V GFR <15 Very Little GFR Left ESRD GFR <15 on CHECKOUT SUPERVISOR 2 Testing was performed on a S LIGHTLY hemolyzed specimen. Suggest recollection of specimen for more accurate test results. Procedures Date Code Description Status 10/23/2020 06250 Office/Outpatient Established Mi nimal Problem(S) Completed 10/20/2020 38296 Preventive Visit Est 40-64 Yrs C ompleted Medical Devices Description No Information Available Encounters Type Date Location Provider Dx Diagnosis Office Visit 10/23/2020 8:00a [facility] Momo glass Z11.1 Encounter for screening for respiratory tuberculosis Office Visit 10/20/2020 8:40a [facility] Angela Alvarez DRudyORudy Z00.00 Encntr for general adult med ical [...] 4.9, adult Assessments Date Code Description Provider 10/23/2020 Z11.1 Encounter for screening for resp iratory tuberculosis Nurse 10/20/2020 Z00.00 Encounter for genera l adult medical examination without abnormal findings Angela Alvarez D.O. 10/20/2020 Z11.1 Encounter for screening for resp iratory tuberculosis Angela Alvarez D.O. 10/20/2020 Z12.11 Encounter for screening for marko gnant neoplasm of colon Andre Ann.ORudy 10/20/2020 Z13.29 Encounter for screen ing for other suspected endocrine disorder Sampson AnnORudy 10/20/2020 Z13.220 Encounter for screening for lipo id disorders Angela Meza D.O. 10/20/2020 Z13.0 Encounter for screen ing for diseases of the blood and blood- forming organs and certain disorders involving the immune mechanism Andre Ann.ORudy 10/20/2020 Z82.49 Family history of is chemic heart disease and other diseases of the circulatory system Angela Alvarez D.O. 10/20/2020 E06.3 Autoimmune thyroiditis Sampson ClarkORudy 10/20/2020 Z88.1 Allergy status to other antibiot ic agents Angela Alvarez D.O. 10/20/2020 Z88.8 Allergy status to other drugs, m edicaments and biological brown Andre Ann.ORudy 10/20/2020 E78.2 Mixed hyperlipidemia Angela Calvin D.O. 10/20/2020 E66.09 Other obesity due to excess gio charlie Sampson AnnORudy 10/20/2020 Z68.34 Body mass index [BMI] 34.0-34.9, adult Angela Alvarez D.O. Plan of Treatment Future Appointment(s):* 10/22/2021 11:00 am - Angela Alvarez D.O. at [facility] Functional Status Description No Information Available Mental Status Description No Information Available Referrals Refer to Reason for Referral Status Appt Date Raji Savage M.D. This is a 49 year female wit h family history of ischemic heart disease who would like to be evaluated based on risk factors. Please evaluate and treat. Sent [facility] [address] [address] [phone] Raymundo Amanda M.D. This is a 49 year old female due for screening colonoscopy. Please evaluate and treat. Closed 10/26/2020 6 [facility] [address] [place], [place] [address] [phone]
--- OUTSIDE RECORDS SUMMARY | 2021-01-16 08:05 | CCD | Continuity of Care Document ---
Author Author Inocencia OLIVEROS PA Organization Unknown Address [address] [place] [address] Phone [phone] Care Team Providers Care Neonatal Specialist Name Role Phone Angela Alvarez D.O. AUTM Problems Description No Information Available Social History Type Date Description Comments Sex Unknown Tobacco Use Start: Unknown Never Smoked Cigarettes ETOH Use Occasionally consumes alcohol ETOH Use 1-2 A Month Tobacco Use Start: Unknown Non Smoker Recreational Drug Use Denies Drug Use Exercise Type/Frequency Does not exercise Allergies, Adverse Reactions, Alerts Active Allergies Criticality Reaction | Severity Comments Date Bactrim Unable to assess criticality 02/17/2015 Levoquin Unable to assess criticality 02/17/2015 Medications Active Medications SIG Qnty Indications Ordering Provide r Date Synthroid 112mcg Tablets onw tab by mouth daily 30tabs Bhavana Worthy CNM 02/17/2015 Vitamin D3 Maximum Strength 5000Unit Capsules daily Bhavana Worthy CNM 5 Biotin 2500mcg Capsules prn Unknown Immunizations Description No Information Available Vital Signs Date Vital Result Comment 10/26/2020 11:10am BP Systolic 126 mmHg BP Diastolic 89 mmHg Body Temperature 98.5 F Height 65 inches 5'5" Weight 201.25 lb BMI (Body Mass Index) 33.5 kg/m2 [place] Body Weight 125 lb Weight 91.287 kg BSA (Body Surface Area) 1.98 m2 09/08/2017 3:13pm BP Systolic 134 mmHg BP Diastolic 78 mmHg Height 65 inches 5'5" Weight 225.00 lb BMI (Body Mass Index) 37.4 kg/m2 [place] Body Weight 125 lb Weight 102.060 kg BSA (Body Surface Area) 2.08 m2 Results Description No Information Available Procedures Date Code Description Status 10/26/2020 53844 Office/Outpatient New Moderate M DM 45-59 Minutes Completed Medical Devices Description No Information Available Encounters Type Date Location Provider Dx Diagnosis Office Visit 10/26/2020 11:15a [facility] KRISTEN An Z12.11 Encounter for screening for malignant ne oplasm of colon K57.30 Dvrtclos of lg int w/o perfo ration or abscess w/o bleeding K64.9 Unspecified hemorrhoids Assessments Date Code Description Provider 10/26/2020 Z12.11 Encounter for screening for marko gnant neoplasm of colon KRISTEN Evans 10/26/2020 K57.30 Diverticulosis of la rge intestine without perforation or abscess without bleeding KRISTEN Evans 10/26/2020 K64.9 Unspecified hemorrhoids KRISTEN Cui Plan of Treatment Future Appointment(s):* 12/20/2020 10:45 am - KRISTEN Evans at [facility] * 12/08/2020 10:45 am - Raymundo Amanda M.D. at [facility] 10/26/2020 - KRISTEN Evans* Z12.11 Encounter for screening for malignant neoplasm of colon * K57.30 Diverticulosis of large intestine without perforation or abscess without bleeding * K64.9 Unspecified hemorrhoids Functional Status Description No Information Available Mental Status Description No Information Available Referrals Refer to Reason for Referral Status Appt Date Raymundo Amanda M.D. SCHEDULE SCOPE Scheduled 10/26/2020 [facility] [address] [place] [address] [phone]
--- OUTSIDE RECORDS SUMMARY | 2021-01-16 08:05 | CCD | Continuity of Care Document ---
Author Author Inocencia OLIVEROS PA Organization Unknown Address [address] [facility] [place] [address] Phone [phone] Care Team Providers Care Water Supervisor Name Role Phone Angela Alvarez D.O. AUTM [phone] Problems Description No Information Available Social History [...] lb BMI (Body Mass Index) 33.5 kg/m2 [place] Body Weight 125 lb Weight 91.287 kg BSA (Body Surface Area) 1.98 m2 09/08/2017 3:13pm BP Systolic 134 mmHg BP Diastolic 78 mmHg Height 65 inches 5'5" Weight 225.00 lb BMI (Body Mass Index) 37.4 kg/m2 [place] Body Weight 125 lb Weight 102.060 kg BSA (Body Surface Area) 2.08 m2 Results Description No Information Available Procedures Description No Information Available Medical Devices Description No Information Available Encounters Description No Information Available Assessments Description No Information Available Plan of Treatment No Information Available Functional Status Description No Information Available Mental Status Description No Information Available Referrals Refer to Reason for Referral Status Appt Date Raymundo Amanda M.D. SCHEDULE SCOPE Scheduled 10/26/2020 [facility] [address] [place] [address] [phone]
--- OUTSIDE RECORDS SUMMARY | 2021-01-16 08:05 | CCD | Continuity of Care Document ---
Author Author Inocencia ALLEN Organization Unknown Address [address] [place] [address] Phone [phone] Problems Description No Information Available Social History Type Date Description Comments Sex Unknown ETOH Use Occasionally consumes alcohol Tobacco Use Start: Unknown Patient has never smoked Smoking Status Reviewed: 12/25/20 Patient has never smoked Allergies and adverse reactions Active Allergies Criticality Reaction | Severity Comments Date Sulfa Unable to assess criticality rash 05/22/2015 Levaquin Unable to assess criticality feels "loopy " 12/25/2020 Medications Active Medications SIG Qnty Indications Ordering Provide r Date Amoxicillin/Clavulanate Potassium 875-125mg Tablets 1 tab by mouth twice a day for 7 days 14tabs J01.90 Silver Bates JR., M.D. 12/25/2020 Synthroid 112mcg Tablets qd Unknown Immunizations Description No Information Available Vital Signs Date Vital Result Comment 12/25/2020 9:01am BP Systolic 134 mmHg BP Diastolic 89 mmHg Heart Rate 90 /min Respiratory Rate 18 /min O2 % BldC Oximetry 98 % Body Temperature 98.9 F Weight 205.00 lb Height 65 inches 5'5" BMI (Body Mass Index) 34.1 kg/m2 Pain Level 3 05/22/2015 9:04am BP Systolic 130 mmHg BP Diastolic 96 mmHg Heart Rate 87 /min Respiratory Rate 18 /min O2 % BldC Oximetry 98 % Body Temperature 97.8 F Weight 205.00 lb Height 65 inches 5'5" BMI (Body Mass Index) 34.1 kg/m2 Pain Level 3 Results Description No Information Available Procedures Date Code Description Status 12/25/2020 12327 Office/Outpatient Established Mo d MDM 30-39 Min Completed Medical Devices Description No Information Available Encounters Type Date Location Provider Dx Diagnosis Office Visit 12/25/2020 8:25a Main Office Gonzalo Allen, Yousuf.Pascual J0 6.9 Acute upper respiratory infection, unspecified J02.9 Acute pharyngitis, unspecifi ed J01.90 Acute sinusitis, unspecified Z20.828 Contact w and exposure to ot h viral communicable diseases Assessments Date Code Description Provider 12/25/2020 J06.9 Acute upper respiratory infectio n, unspecified Gonzalo Allen P.A. 12/25/2020 J02.9 Acute pharyngitis, unspecified Katt Allen P.A. 12/25/2020 J01.90 Acute sinusitis, unspecified Yayo Allen P.A. 12/25/2020 Z20.828 Contact with and (brown spected) exposure to other viral communicable diseases Yousuf Short.A. 11/18/2020 Z20.828 Contact with and (brown spected) exposure to other viral communicable diseases KRISTEN May 11/13/2020 Z20.828 Contact with and (brwon spected) exposure to other viral communicable diseases Gonzalo Allen, Yousuf.Pascual Plan of Treatment No Information Available Functional Status Description No Information Available Mental Status Description No Information Available Referrals Description No Information Available
--- OUTSIDE RECORDS SUMMARY | 2021-01-16 08:05 | CCD | Continuity of Care Document ---
Author Author Inocencia JACKMAN Organization Unknown Address [address] [place] [address] Phone [phone] Problems Description No Information Available Social History Type Date Description Comments Sex Unknown ETOH Use Occasionally consumes alcohol Tobacco Use Start: Unknown Patient has never smoked Allergies, Adverse Reactions, Alerts Active Allergies Criticality Reaction | Severity Comments Date Sulfa Unable to assess criticality rash 05/22/2015 Medications Active Medications SIG Qnty Indications Ordering Provide r Date Synthroid 112mcg Tablets qd Unknown Immunizations Description No Information Available Vital Signs Date Vital Result Comment 05/22/2015 9:04am BP Systolic 130 mmHg BP Diastolic 96 mmHg Heart Rate 87 /min Respiratory Rate 18 /min O2 % BldC Oximetry 98 % Body Temperature 97.8 F Weight 205.00 lb Height 65 inches 5'5" BMI (Body Mass Index) 34.1 kg/m2 Pain Level 3 Results Description No Information Available Procedures Description No Information Available Medical Devices Description No Information Available Encounters Description No Information Available Assessments Date Code Description Provider 11/18/2020 Z20.828 Contact with and (brown spected) exposure to other viral communicable diseases KRISTEN May 11/13/2020 Z20.828 Contact with and (brown spected) exposure to other viral communicable diseases Benny Short Plan of Treatment No Information Available Functional Status Description No Information Available Mental Status Description No Information Available Referrals Description No Information Available
--- OUTSIDE RECORDS SUMMARY | 2021-01-16 08:05 | CCD | Continuity of Care Document ---
Author Author Inocencia DIEHL RI Organization Unknown Address [address] [place] [address] Phone [phone] Care Team Providers Care Human Resources Recruiter Name Role Phone Angela Alvarez D.O. AUTM [phone] Tammy Zeng M.D. AUTM [phone] Raji Savage M.D. AUTM [phone] Raymundo Amanda M.D. AUTM [phone] Problems Active Problems Provider Date Neoplastic disease [...] Re c inject subcutaneous times one 1units Andre Ann.O . 10/20/2020 Vitamin D3 5000Unit Tablets to be taken by mouth once a day 90tabs E55.9 Andre Ann.O. 07/01 Synthroid 112mcg Tablets take 1 tablet by mouth every day 90tabs Andre Ann.O. Magnesium Phosphate Dibasic Trihydrate Powder 8 sublingual tabs nightly Unknown Biotin 2500mcg Capsules 1 tablet by mouth once per day Unknown Immunizations CPT Code Status Date Vaccine Lot # [id number] Given 10/20/2020 TB Intradermal Test [id number] 27375 Given 08/27/2019 TB Intradermal Test 09477 Given 08/27/2019 TB Intradermal Test [id number] 33911 Given 03/23/2018 TB Intradermal Test [id number] Vital Signs Date Vital Result Comment 12/13/2020 1:02pm BP Systolic 132 mmHg BP Diastolic 90 mmHg Height 64.2 inches 5'4.20" Weight 208.00 lb BMI (Body Mass Index) 35.5 kg/m2 Heart Rate 91 /min Respiratory Rate 20 /min Body Temperature 97.9 F O2 % BldC Oximetry 99 % [place] Body Weight 120 lb 12/04/2020 1:16pm BP Systolic 126 mmHg BP Diastolic 76 mmHg Height 64.2 inches 5'4.20" Weight 208.38 lb BMI (Body Mass Index) 35.5 kg/m2 Heart Rate 85 /min Respiratory Rate 18 /min Body Temperature 98.8 F O2 % BldC Oximetry 97 % [place] Body Weight 120 lb Results Test Acquired Date Facility Test Result H/L Range Note CBC With Differential 12/02/2020 [facility] Outpatient Carmen jerryg (Registration) [address] [place] [address] [phone] White Blood Count 6.5 10 Normal 4.0-10.0 [...] 36.0-66.0 Lymph % 37.9 % Normal 24.0-44.0 [place] % 8.7 % High 2.0-8.0 Eos % 3.7 % High 0.0-3.0 Baso % 0.5 % Normal 0.0-1.0 Immature Granulocyte % 0.2 % Normal 0-3.0 Nucleated Red Blood Cell % 0.0 % Normal 0-0 Neutrophils # 3.2 10 Normal 1.5-8.5 Lymph # 2.5 10 Normal 1.5-5.0 [place] # 0.6 10 Normal 0.0-0.8 Eos # 0.2 10 Normal 0.0-0.5 Baso # 0.0 10 Normal 0.0-0.2 Ua W/ Reflex To Culture 12/02/2020 [facility] Outpatient T vlad (Registration) [address] [place] [address] [phone] Appearance, Urine RFX CLEAR Normal Clear Color, Urine RFX YELLOW Normal Yellow PH,Urine RFX 5.0 units Normal 5.0-9.0 Specific [place] Ur Auto RFX 1.009 Normal 1.002-1.035 Protein, [...] 0 /LPF Normal 0-1 Liver Profile 12/02/2020 [facility] Outpatient Testi ng (Registration) [address] [place] [address] [phone] Ast/Sgot 25 U/L Normal 7-37 Alt/SGPT 32 U/L Normal 12-78 Alkaline Phosphatase 55 U/L Normal 45-117 Bilirubin,Total 0.3 mg/dL Normal 0.2-1.0 Bilirubin,Direct < 0.1 mg/dL Normal 0.0-0.2 Total Protein 7.1 GM/DL Normal 6.4-8.2 Albumin 4.0 GM/DL Normal 3.2-5.2 Albumin/Globulin Ratio 1.3 Normal 1.2-2.2 Basic Metabolic Profile 12/02/2020 [facility] Outpatient T celesteing (Registration) [address] [place] [address] [phone] Glucose, Fasting 113 mg/dL High 70-100 Blood [...] mg/dL Normal 8.5-10.1 Laboratory test finding 12/02/2020 [facility] Outpatient T vlad (Registration) [address] [place], [place] [id number] [phone] Lipase 84 U/L Normal 73-393 1 Units are mL/min/1.73 m2 Chronic Kidney Disease Staging per NKF: Stage I & II GFR >=60 Normal to Mildly Decreased Stage III GFR 30-59 Moderately Decreased Stage IV GFR 15-29 Severely Decreased Stage V GFR <15 Very Little GFR Left ESRD GFR <15 on MACHINIST 2ND SHIFT 2 Testing was performed on a S LIGHTLY hemolyzed specimen. Suggest recollection of specimen for more accurate test results. Procedures Date Code Description Status 12/13/2020 99542 Office/Outpatient Established Mo d MDM 30-39 Min Completed 12/04/2020 37751 Office/Outpatient Established Mo d MDM 30-39 Min Completed 10/23/2020 12756 Office/Outpatient Established Mi nimal Problem(S) Completed 10/20/2020 13658 Preventive Visit Est 40-64 Yrs C ompleted Medical Devices Description No Information Available Encounters Type Date Location Provider Dx Diagnosis Office Visit 12/13/2020 1:00p Family Medicine [facility] KRISTEN Pineda R10.10 Upper abdominal pain, unspec ified R10.2 Pelvic and perineal pain Office Visit 12/04/2020 1:20p Family [facility] KRISTEN Meeks M54.50 Low back pain, unspecified K59.00 Constipation, unspecified Office Visit 10/23/2020 8:00a [facility] Momo glass Z11.1 Encounter for screening for respiratory tuberculosis Office Visit 10/20/2020 8:40a Family [facility] Angela Alvarez D.O. Z00.00 Encntr for general [...] Encounter for screening for resp iratory tuberculosis Sampson AnnORudy 10/20/2020 Z12.11 Encounter for screening for marko [...] 01/19/2021 1:20 pm - KRISTEN Pineda at [facility] * 10/22/2021 11:00 am - Angela Alvarez D.O. at [facility] Functional Status Description No Information Available Mental Status Description No Information Available Referrals Refer to Reason for Referral Status Appt Date Raji Savage M.D. This is a 49 year female wit h family history of ischemic heart disease who would like to be evaluated based on risk factors. Please evaluate and treat. Sent 02/14/2021 [facility] [address] [facility] [address] [place] [address] [phone] Raymundo Amanda M.D. This is a 49 year old female due for screening colonoscopy. Please evaluate and treat. Closed 10/26/[address] [id number] [phone]
--- OUTSIDE RECORDS SUMMARY | 2021-01-16 08:05 | CCD | Continuity of Care Document ---
Author Author Inocencia JACKMAN [place] Organization Unknown Address [address] [place] [address] Phone [phone] Problems Description No Information Available Social History [...] Information Available Assessments Date Code Description Provider 11/13/2020 Z20.828 Contact with and (brown spected) exposure to other viral communicable diseases Benny Short Plan of Treatment No Information Available Functional Status Description No Information Available Mental Status Description No Information Available Referrals Description No Information Available
--- OUTSIDE RECORDS SUMMARY | 2021-01-16 08:05 | CCD | Continuity of Care Document ---
Author Author Inocencia ASENCIO IN Organization Unknown Address [address] [place] [address] 6 [address] [place] [address] Phone [phone] Care Team Providers Care Landscape Photographer Name Role Phone Angela Alvarez D.O. AUTM [phone] Tammy Zeng M.D. AUTM [phone] Raji Savage M.D. AUTM [phone] Raymundo Amanda M.D. AUTM [phone] Problems Active Problems Provider Date Neoplastic disease [...] tablet by mouth every day 90tabs Andre Ann.ORudy Magnesium Phosphate Dibasic Trihydrate Powder 8 sublingual tabs nightly Unknown Biotin 2500mcg Capsules 1 tablet by mouth once per day Unknown Cipro 500mg Tablets 1 tab by mouth twice daily until gone Unknown Immunizations CPT Code Status Date Vaccine Lot # [id number] Given 10/20/2020 TB Intradermal Test [id number] 20762 Given 08/27/2019 TB Intradermal Test 09161 Given 08/27/2019 TB Intradermal Test [id number] 60349 Given 03/23/2018 TB Intradermal Test [id number] Vital Signs Date Vital Result Comment 12/04/2020 1:16pm BP Systolic 126 mmHg BP Diastolic 76 mmHg Height 64.2 inches 5'4.20" Weight 208.38 lb BMI (Body Mass Index) 35.5 kg/m2 Heart Rate 85 /min Respiratory Rate 18 /min Body Temperature 98.8 F O2 % BldC Oximetry 97 % [place] Body Weight 120 lb 10/20/2020 8:46am BP Systolic 126 mmHg BP Diastolic 84 mmHg Height 64.2 inches 5'4.20" Weight 203.00 lb BMI (Body Mass Index) 34.6 kg/m2 Heart Rate 76 /min Respiratory Rate 18 /min Body Temperature 98.1 F O2 % BldC Oximetry 99 % [place] Body Weight 120 lb Results Test Acquired Date Facility Test Result H/L Range Note CBC With Differential 12/02/2020 [facility] Outpatient Carmen ting (Registration) [address] [place] [address] [phone] White Blood Count 6.5 10 Normal 4.0-10.0 [...] 36.0-66.0 Lymph % 37.9 % Normal 24.0-44.0 [place] % 8.7 % High 2.0-8.0 Eos % 3.7 % High 0.0-3.0 Baso % 0.5 % Normal 0.0-1.0 Immature Granulocyte % 0.2 % Normal 0-3.0 Nucleated Red Blood Cell % 0.0 % Normal 0-0 Neutrophils # 3.2 10 Normal 1.5-8.5 Lymph # 2.5 10 Normal 1.5-5.0 [place] # 0.6 10 Normal 0.0-0.8 Eos # 0.2 10 Normal 0.0-0.5 Baso # 0.0 10 Normal 0.0-0.2 Ua W/ Reflex To Culture 12/02/2020 [facility] Outpatient T esting (Registration) [address] [place] [address] [phone] Appearance, Urine RFX CLEAR Normal Clear Color, Urine RFX YELLOW Normal Yellow PH,Urine RFX 5.0 units Normal 5.0-9.0 Specific [place] Ur Auto RFX 1.009 Normal 1.002-1.035 Protein, [...] 0 /LPF Normal 0-1 Liver Profile 12/02/2020 [facility] Outpatient Testi ng (Registration) [address] [place] [address] [id number] [phone] Ast/Sgot 25 U/L Normal 7-37 Alt/SGPT 32 U/L Normal 12-78 Alkaline Phosphatase 55 U/L Normal 45-117 Bilirubin,Total 0.3 mg/dL Normal 0.2-1.0 Bilirubin,Direct < 0.1 mg/dL Normal 0.0-0.2 Total Protein 7.1 GM/DL Normal 6.4-8.2 Albumin 4.0 GM/DL Normal 3.2-5.2 Albumin/Globulin Ratio 1.3 Normal 1.2-2.2 Basic Metabolic Profile 12/02/2020 [facility] Outpatient T esting (Registration) [address] [place] [address] [id number] [phone] Glucose, Fasting 113 mg/dL High 70-100 Blood [...] mg/dL Normal 8.5-10.1 Laboratory test finding 12/02/2020 [facility] Outpatient T esting (Registration) [place] [address] [phone] Lipase 84 U/L Normal 73-393 1 Units are mL/min/1.73 m2 Chronic Kidney Disease Staging per NKF: Stage I & II GFR >=60 Normal to Mildly Decreased Stage III GFR 30-59 Moderately Decreased Stage IV GFR 15-29 Severely Decreased Stage V GFR <15 Very Little GFR Left ESRD GFR <15 on CONTRACT ENGINEER 2 Testing was performed on a S LIGHTLY hemolyzed specimen. Suggest recollection of specimen for more accurate test results. Procedures Date Code Description Status 12/04/2020 03690 Office/Outpatient Established Mo d MDM 30-39 Min Completed 10/23/2020 41616 Office/Outpatient Established Mi nimal Problem(S) Completed 10/20/2020 43642 Preventive Visit Est 40-64 Yrs C ompleted Medical Devices Description No Information Available Encounters Type Date Location Provider Dx Diagnosis Office Visit 12/04/2020 1:20p [facility] KRISTEN Meeks M54.50 Low back pain, unspecified K59.00 Constipation, unspecified Office Visit 10/23/2020 8:00a [facility] N urse Z11.1 Encounter for screening for respiratory tuberculosis Office Visit 10/20/2020 8:40a [facility] Angela Alvarez D.O. Z00.00 Encntr for general [...] 4.9, adult Assessments Date Code Description Provider 12/04/2020 M54.50 Low back pain, unspecified Leonel KRISTEN Amador 12/04/2020 K59.00 Constipation, unspecified KRISTEN Meeks 10/23/2020 Z11.1 Encounter for screening for resp iratory tuberculosis Nurse 10/20/2020 Z00.00 Encounter for genera l adult medical examination without abnormal findings Sampson AnnORudy 10/20/2020 Z11.1 Encounter for screening for resp iratory tuberculosis Sampson AnnORudy 10/20/2020 Z12.11 Encounter for screening for marko gnant neoplasm of colon Sampson AnnORudy 10/20/2020 Z13.29 Encounter for screen ing for other suspected endocrine disorder Angela Alvarez D.O. 10/20/2020 Z13.220 Encounter for screening for lipo id disorders Angela Meza D.O. 10/20/2020 Z13.0 Encounter for screen ing for diseases of the blood and blood- forming organs and certain disorders involving the immune mechanism Sampson AnnORudy 10/20/2020 Z82.49 Family history of is chemic heart disease and other diseases of the circulatory system Angela Alvarez D.O. 10/20/2020 E06.3 Autoimmune thyroiditis Sampson ClarkORudy 10/20/2020 Z88.1 Allergy status to other antibiot ic agents Angela Alvarez D.O. 10/20/2020 Z88.8 Allergy status to other drugs, m edicaments and biological brown Sampson AnnORudy 10/20/2020 E78.2 Mixed hyperlipidemia Angela aClvin D.O. 10/20/2020 E66.09 Other obesity due to excess gio charlie Sampson AnnORudy 10/20/2020 Z68.34 Body mass index [BMI] 34.0-34.9, adult Angela Alvarez D.O. Plan of Treatment Future Appointment(s):* 10/22/2021 11:00 am - Angela Alvarez D.O. at [facility] Functional Status Description No Information Available Mental Status Description No Information Available Referrals Refer to Reason for Referral Status Appt Date Raji Savage M.D. This is a 49 year female wit h family history of ischemic heart disease who would like to be evaluated based on risk factors. Please evaluate and treat. Sent [facility] [address] [facility] [address] [place], [place] [id number] [phone] Raymundo Amanda M.D. This is a 49 year old female due for screening colonoscopy. Please evaluate and treat. Closed 10/26/2020 826 [facility] [address] [place], [place] [id number] [phone]
--- OUTSIDE RECORDS SUMMARY | 2021-01-16 08:05 | CCD | Continuity of Care Document ---
Author Author Nurse, Inocencia Organization Unknown Address [address] [facility] [address] [place] [address] Phone [phone] Care Team Providers Care Interior Design Project Manager Name Role Phone Angela Alvarez D.O. AUTM [phone] Tammy Zeng M.D. AUTM [phone] Raji Savage M.D. AUTM [phone] Rayumndo Amanda M.D. AUTM [phone] Problems Active Problems Provider Date Neoplastic disease [...] CPT Code Status Date Vaccine Lot # [id number] Given 10/20/2020 TB Intradermal Test [id number] 75233 Given 08/27/2019 TB Intradermal Test 48367 Given 08/27/2019 TB Intradermal Test [id number] 02807 Given 03/23/2018 TB Intradermal Test [id number] Vital Signs Date Vital Result Comment 10/20/2020 8:46am BP Systolic 126 mmHg BP Diastolic 84 mmHg Height 64.2 inches 5'4.20" Weight 203.00 lb BMI (Body Mass Index) 34.6 kg/m2 Heart Rate 76 /min Respiratory Rate 18 /min Body Temperature 98.1 F O2 % BldC Oximetry 99 % [place] Body Weight 120 lb 03/01/2020 9:05am BP Systolic 118 mmHg BP Diastolic 78 mmHg Height 64.2 inches 5'4.20" Weight 224.00 lb BMI (Body Mass Index) 38.2 kg/m2 Heart Rate 90 /min Respiratory Rate 20 /min Body Temperature 98.3 F O2 % BldC Oximetry 98 % [place] Body Weight 120 lb Results Description No Information Available Procedures Date Code Description Status 10/23/2020 62808 Office/Outpatient Established Mi nimal Problem(S) Completed 10/20/2020 39402 Preventive Visit Est 40-64 Yrs C ompleted Medical Devices Description No Information Available Encounters Type Date Location Provider Dx Diagnosis Office Visit 10/23/2020 8:[facility]a [facility] Z11.1 Encounter for screening for respiratory tuberculosis Office Visit 10/20/2020 8:40a [facility] Angela Alvarez D.O. Z00.00 Encntr for general [...] Sampson AnnORudy 10/20/2020 E78.2 Mixed hyperlipidemia Angela Calvin D.O. 10/20/2020 E66.09 Other obesity due to excess gio charlie Sampson AnnORudy 10/20/2020 Z68.34 Body mass index [BMI] 34.0-34.9, adult Angela Alvarez D.O. Plan of Treatment Future Appointment(s):* 10/22/2021 11:00 am - Angela Alvarez D.O. at [facility] Functional Status Description No Information Available Mental Status Description No Information Available Referrals Refer to Reason for Referral Status Appt Date Raymundo Amanda M.D. This is a 49 year old female due for screening colonoscopy. Please evaluate and treat. Sent 10/26/2020 6 [facility] [address] [place] [address] [phone] Raji Savage M.D. This is a 49 year female wit h family history of ischemic heart disease who would like to be evaluated based on risk factors. Please evaluate and treat. Sent [facility] [address] [facility] 6 [place] [address] [phone]
--- OUTSIDE RECORDS SUMMARY | 2021-01-16 08:05 | CCD | Continuity of Care Document ---
Author Author Inocencia ALLEN Organization Unknown Address [address] [place] [address] Phone [phone] Problems Description No Information Available Social History [...] Available Procedures Date Code Description Status 12/25/2020 75183 Office/Outpatient Established Mo d MDM 30-39 Min [...]
--- OUTSIDE RECORDS SUMMARY | 2021-01-16 08:05 | CCD | Continuity of Care Document ---
Author Author Inocencia ASENCIO [place] Organization Unknown Address [address] [place] [address] [address] [place] [address] Phone [phone] Care Team Providers Care Parole Officer Name Role Phone Angela Alvarez D.O. AUTM [phone] Tammy Zeng M.D. AUTM [phone] Raji Savage M.D. AUTM [phone] Raymundo Amanda M.D. AUTM [phone] Problems Active Problems Provider Date Neoplastic disease [...] CPT Code Status Date Vaccine Lot # [id number] Given 10/20/2020 TB Intradermal Test [id number] 65317 Given 08/27/2019 TB Intradermal Test 01440 Given 08/27/2019 TB Intradermal Test [id number] 87547 Given 03/23/2018 TB Intradermal Test [id number] Vital Signs Date Vital Result Comment 12/04/2020 1:16pm BP Systolic 126 mmHg BP Diastolic 76 mmHg Height 64.2 inches 5'4.20" Weight 208.38 lb BMI (Body Mass Index) 35.5 kg/m2 Heart Rate 85 /min Respiratory Rate 18 /min Body Temperature 98.8 F O2 % BldC Oximetry 97 % [place] Body Weight 120 lb 10/20/2020 8:46am BP Systolic 126 mmHg BP Diastolic 84 mmHg Height 64.2 inches 5'4.20" Weight 203.00 lb BMI (Body Mass Index) 34.6 kg/m2 Heart Rate 76 /min Respiratory Rate 18 /min Body Temperature 98.1 F O2 % BldC Oximetry 99 % [place] Body Weight 120 lb Results Test Acquired Date Facility Test Result H/L Range Note CBC With Differential 12/02/2020 [facility] Outpatient Carmen ting (Registration) [address] [place] [address] [phone] White Blood Count 6.5 10 Normal 4.0-10.0 [...] 36.0-66.0 Lymph % 37.9 % Normal 24.0-44.0 [place] % 8.7 % High 2.0-8.0 Eos % 3.7 % High 0.0-3.0 Baso % 0.5 % Normal 0.0-1.0 Immature Granulocyte % 0.2 % Normal 0-3.0 Nucleated Red Blood Cell % 0.0 % Normal 0-0 Neutrophils # 3.2 10 Normal 1.5-8.5 Lymph # 2.5 10 Normal 1.5-5.0 [place] # 0.6 10 Normal 0.0-0.8 Eos # 0.2 10 Normal 0.0-0.5 Baso # 0.0 10 Normal 0.0-0.2 Ua W/ Reflex To Culture 12/02/2020 [facility] Outpatient T esting (Registration) [address] [place] [address] [phone] Appearance, Urine RFX CLEAR Normal Clear Color, Urine RFX YELLOW Normal Yellow PH,Urine RFX 5.0 units Normal 5.0-9.0 Specific [place] Ur Auto RFX 1.009 Normal 1.002-1.035 Protein, [...] 0 /LPF Normal 0-1 Liver Profile 12/02/2020 [facility] Outpatient Testi ng (Registration) [address] [place] [address] [id number] [phone] Ast/Sgot 25 U/L Normal 7-37 Alt/SGPT 32 U/L Normal 12-78 Alkaline Phosphatase 55 U/L Normal 45-117 Bilirubin,Total 0.3 mg/dL Normal 0.2-1.0 Bilirubin,Direct < 0.1 mg/dL Normal 0.0-0.2 Total Protein 7.1 GM/DL Normal 6.4-8.2 Albumin 4.0 GM/DL Normal 3.2-5.2 Albumin/Globulin Ratio 1.3 Normal 1.2-2.2 Basic Metabolic Profile 12/02/2020 [facility] Outpatient T esting (Registration) [address] [place] [address] [id number] [phone] Glucose, Fasting 113 mg/dL High 70-100 Blood [...] mg/dL Normal 8.5-10.1 Laboratory test finding 12/02/2020 [facility] Outpatient T esting (Registration) [address] [place], [place] [phone] Lipase 84 U/L Normal 73-393 1 Units are mL/min/1.73 m2 Chronic Kidney Disease Staging per NKF: Stage I & II GFR >=60 Normal to Mildly Decreased Stage III GFR 30-59 Moderately Decreased Stage IV GFR 15-29 Severely Decreased Stage V GFR <15 Very Little GFR Left ESRD GFR <15 on BLACKTOP SPREADER 2 Testing was performed on a S LIGHTLY hemolyzed specimen. Suggest recollection of specimen for more accurate test results. Procedures Date Code Description Status 10/23/2020 97663 Office/Outpatient Established Mi nimal Problem(S) Completed 10/20/2020 07928 Preventive Visit Est 40-64 Yrs C ompleted Medical Devices Description No Information Available Encounters Type Date Location Provider Dx Diagnosis Office Visit 10/23/2020 8:00a [facility] Momo glass Z11.1 Encounter for screening for respiratory tuberculosis Office Visit 10/20/2020 8:40a [facility] Angela Alvarez D.O. Z00.00 Encntr for [...] Provider 12/04/2020 M54.50 Low back pain, unspecified KRISTEN Hill 12/04/2020 K59.00 Constipation, unspecified KRISTEN Meeks 10/23/2020 [...] Encounter for screening for lipo id disorders Sampson SanchesORudy 10/20/2020 Z13.0 Encounter for screen ing for diseases of the blood and blood- forming organs and certain disorders involving the immune mechanism Sampson AnnORudy 10/20/2020 Z82.49 Family history of is chemic heart disease and other diseases of the circulatory system Angela Alvarez D.O. 10/20/2020 E06.3 Autoimmune thyroiditis Andre Clark.ORudy 10/20/2020 Z88.1 Allergy status to other antibiot ic agents Andre Ann.ORudy 10/20/2020 Z88.8 Allergy status to other drugs, m edicaments and biological brown Andre Ann.ORudy 10/20/2020 E78.2 Mixed hyperlipidemia Andre Duke.ORudy 10/20/2020 E66.09 Other obesity due to excess gio charlie Andre Ann.ORudy 10/20/2020 Z68.34 Body mass index [BMI] 34.0-34.9, adult Angela Alvarez D.O. Plan of Treatment Future Appointment(s):* 10/22/2021 11:00 am - Angela Alvarez D.O. at [facility] 12/04/2020 - KRISTEN Meeks* M54.50 Low back pain, unspecified* Comments: * Suspicious of back difficulties due to constipation. As noted below. * Follow up:* As already scheduled. * K59.00 Constipation, unspecified* Comments:* You have been given samples of linzess to use. Take 1 when you get home, and repeat it if needed in 4 hours. Call if not improved by Friday, or for any other concerns. Functional Status Description No Information Available Mental Status Description No Information Available Referrals Refer to Reason for Referral Status Appt Date Raji Savage M.D. This is a 49 year female wit h family history of ischemic heart disease who would like to be evaluated based on risk factors. Please evaluate and treat. Sent [facility] [address] [facility] [address] [place] [address] [phone] Raymundo Amanda M.D. This is a 49 year old female due for screening colonoscopy. Please evaluate and treat. Closed 10/26/2020 6 [facility] [address] [place] [address] [phone]
--- OUTSIDE RECORDS SUMMARY | 2021-01-16 08:05 | CCD | Continuity of Care Document ---
Author Author Inocencia DIEHL [place] Organization Unknown Address [address] [place] [address] Phone [phone] Care Team Providers Care Associate Financial Advisor Name Role Phone Angela Alvarez D.O. AUTM Tammy Zeng M.D. AUTM [phone] Raji Savage M.D. AUTM [phone] Raymundo Amanda M.D. AUTM [phone] Problems Active Problems Provider Date Neoplastic disease [...] CPT Code Status Date Vaccine Lot # [id number] Given 10/20/2020 TB Intradermal Test [id number] 17784 Given 08/27/2019 TB Intradermal Test 92461 Given 08/27/2019 TB Intradermal Test [id number] 59785 Given 03/23/2018 TB Intradermal Test [id number] Vital Signs Date Vital Result Comment 12/13/2020 1:02pm BP Systolic 132 mmHg BP Diastolic 90 mmHg Height 64.2 inches 5'4.20" Weight 208.00 lb BMI (Body Mass Index) 35.5 kg/m2 Heart Rate 91 /min Respiratory Rate 20 /min Body Temperature 97.9 F O2 % BldC Oximetry 99 % [place] Body Weight 120 lb 12/04/2020 1:16pm BP Systolic 126 mmHg BP Diastolic 76 mmHg Height 64.2 inches 5'4.20" Weight 208.38 lb BMI (Body Mass Index) 35.5 kg/m2 Heart Rate 85 /min Respiratory Rate 18 /min Body Temperature 98.8 F O2 % BldC Oximetry 97 % [place] Body Weight 120 lb Results Test Acquired Date Facility Test Result H/L Range Note CBC With Differential 12/02/2020 [facility] Outpatient Carmen jerryg (Registration) [address] [place] [address] [phone] White Blood Count 6.5 10 Normal 4.0-10.0 [...] 36.0-66.0 Lymph % 37.9 % Normal 24.0-44.0 [place] % 8.7 % High 2.0-8.0 Eos % 3.7 % High 0.0-3.0 Baso % 0.5 % Normal 0.0-1.0 Immature Granulocyte % 0.2 % Normal 0-3.0 Nucleated Red Blood Cell % 0.0 % Normal 0-0 Neutrophils # 3.2 10 Normal 1.5-8.5 Lymph # 2.5 10 Normal 1.5-5.0 [place] # 0.6 10 Normal 0.0-0.8 Eos # 0.2 10 Normal 0.0-0.5 Baso # 0.0 10 Normal 0.0-0.2 Ua W/ Reflex To Culture 12/02/2020 [facility] Outpatient T vlad (Registration) [address] [place] [address] [phone] Appearance, Urine RFX CLEAR Normal Clear Color, Urine RFX YELLOW Normal Yellow PH,Urine RFX 5.0 units Normal 5.0-9.0 Specific [place] Ur Auto RFX 1.009 Normal 1.002-1.035 [...] 0 /LPF Normal 0-1 Liver Profile 12/02/2020 [facility] Outpatient Testi ng (Registration) [address] [place] [address] [phone] Ast/Sgot 25 U/L Normal 7-37 Alt/SGPT 32 U/L Normal 12-78 Alkaline Phosphatase 55 U/L Normal 45-117 Bilirubin,Total 0.3 mg/dL Normal 0.2-1.0 Bilirubin,Direct < 0.1 mg/dL Normal 0.0-0.2 Total Protein 7.1 GM/DL Normal 6.4-8.2 Albumin 4.0 GM/DL Normal 3.2-5.2 Albumin/Globulin Ratio 1.3 Normal 1.2-2.2 Basic Metabolic Profile 12/02/2020 [facility] Outpatient T celesteing (Registration) [address] [place] [address] [phone] Glucose, Fasting 113 mg/dL High 70-100 Blood [...] mg/dL Normal 8.5-10.1 Laboratory test finding 12/02/2020 [facility] Outpatient T vlad (Registration) [address] [place], [place] [phone] Lipase 84 U/L Normal 73-393 1 Units are mL/min/1.73 m2 Chronic Kidney Disease Staging per NKF: Stage I & II GFR >=60 Normal to Mildly Decreased Stage III GFR 30-59 Moderately Decreased Stage IV GFR 15-29 Severely Decreased Stage V GFR <15 Very Little GFR Left ESRD GFR <15 on SALES [employer]ENT [employer] V[employer]ING [employer]ICE 2 Testing was performed on a S LIGHTLY hemolyzed specimen. Suggest recollection of specimen for more accurate test results. Procedures Date Code Description Status 12/13/2020 10365 Office/Outpatient Established Mo d MDM 30-39 Min Completed 12/04/2020 34507 Office/Outpatient Established Mo d MDM 30-39 Min Completed 10/23/2020 19190 Office/Outpatient Established Mi nimal Problem(S) Completed 10/20/2020 78006 Preventive Visit Est 40-64 Yrs C ompleted Medical Devices Description No Information Available Encounters Type Date Location Provider Dx Diagnosis Office Visit 12/13/2020 1:00p Family [facility] KRISTEN Pineda R10.10 Upper abdominal pain, unspec ified R10.2 Pelvic and perineal pain Office Visit 12/04/2020 1:20p Family [facility] KRISTEN Meeks M54.50 Low back pain, unspecified K59.00 Constipation, unspecified Office Visit 10/23/2020 8:00a [facility] Momo glass Z11.1 Encounter for screening for respiratory tuberculosis Office Visit 10/20/2020 8:40a Family [facility] Angela Alvarez D.O. Z00.00 Encntr for general [...] 01/19/2021 1:20 pm - KRISTEN Pineda at [facility] * 10/22/2021 11:00 am - Angela Alvarez D.O. at [facility] Functional Status Description No Information Available Mental Status Description No Information Available Referrals Refer to Reason for Referral Status Appt Date Raji Savage M.D. This is a 49 year female wit h family history of ischemic heart disease who would like to be evaluated based on risk factors. Please evaluate and treat. Sent 02/14/2021 [facility] [address] [facility] 6 [place] [address] [phone] Raymundo Amanda M.D. This is a 49 year old female due for screening colonoscopy. Please evaluate and treat. Closed 10/26/[address] [id number] [phone]
--- OUTSIDE RECORDS SUMMARY | 2021-01-16 08:05 | CCD | Continuity of Care Document ---
Author Author Inocencia DIEHL [place] Organization Unknown Address [address] [place] [address] Phone [phone] Care Team Providers Care Marketing Services Specialist Name Role Phone Angela Alvarez D.O. AUTM Tammy Zeng M.D. AUTM [phone] Raji Savage M.D. AUTM [phone] Raymundo Amanda M.D. AUTM [phone] Problems Active Problems Provider Date Neoplastic disease [...] CPT Code Status Date Vaccine Lot # [id number] Given 10/20/2020 TB Intradermal Test [id number] 33552 Given 08/27/2019 TB Intradermal Test 69312 Given 08/27/2019 TB Intradermal Test [id number] 78618 Given 03/23/2018 TB Intradermal Test [id number] Vital Signs Date Vital Result Comment 12/13/2020 1:02pm BP Systolic 132 mmHg BP Diastolic 90 mmHg Height 64.2 inches 5'4.20" Weight 208.00 lb BMI (Body Mass Index) 35.5 kg/m2 Heart Rate 91 /min Respiratory Rate 20 /min Body Temperature 97.9 F O2 % BldC Oximetry 99 % [place] Body Weight 120 lb 12/04/2020 1:16pm BP Systolic 126 mmHg BP Diastolic 76 mmHg Height 64.2 inches 5'4.20" Weight 208.38 lb BMI (Body Mass Index) 35.5 kg/m2 Heart Rate 85 /min Respiratory Rate 18 /min Body Temperature 98.8 F O2 % BldC Oximetry 97 % [place] Body Weight 120 lb Results Test Acquired Date Facility Test Result H/L Range Note CBC With Differential 12/02/2020 [facility] Outpatient Carmen jerryg (Registration) [address] [place] [address] [phone] White Blood Count 6.5 10 Normal 4.0-10.0 [...] 36.0-66.0 Lymph % 37.9 % Normal 24.0-44.0 [place] % 8.7 % High 2.0-8.0 Eos % 3.7 % High 0.0-3.0 Baso % 0.5 % Normal 0.0-1.0 Immature Granulocyte % 0.2 % Normal 0-3.0 Nucleated Red Blood Cell % 0.0 % Normal 0-0 Neutrophils # 3.2 10 Normal 1.5-8.5 Lymph # 2.5 10 Normal 1.5-5.0 [place] # 0.6 10 Normal 0.0-0.8 Eos # 0.2 10 Normal 0.0-0.5 Baso # 0.0 10 Normal 0.0-0.2 Ua W/ Reflex To Culture 12/02/2020 [facility] Outpatient T vlad (Registration) [address] [place] [address] [phone] Appearance, Urine RFX CLEAR Normal Clear Color, Urine RFX YELLOW Normal Yellow PH,Urine RFX 5.0 units Normal 5.0-9.0 Specific [place] Ur Auto RFX 1.009 Normal 1.002-1.035 Protein, [...] 0 /LPF Normal 0-1 Liver Profile 12/02/2020 [facility] Outpatient Testi ng (Registration) [address] [place] [address] [phone] Ast/Sgot 25 U/L Normal 7-37 Alt/SGPT 32 U/L Normal 12-78 Alkaline Phosphatase 55 U/L Normal 45-117 Bilirubin,Total 0.3 mg/dL Normal 0.2-1.0 Bilirubin,Direct < 0.1 mg/dL Normal 0.0-0.2 Total Protein 7.1 GM/DL Normal 6.4-8.2 Albumin 4.0 GM/DL Normal 3.2-5.2 Albumin/Globulin Ratio 1.3 Normal 1.2-2.2 Basic Metabolic Profile 12/02/2020 [facility] Outpatient T celesteing (Registration) [address] [place] [address] [phone] Glucose, Fasting 113 mg/dL High 70-100 Blood [...] mg/dL Normal 8.5-10.1 Laboratory test finding 12/02/2020 [facility] Outpatient T vlad (Registration) [address] [place], [place] [phone] Lipase 84 U/L Normal 73-393 1 Units are mL/min/1.73 m2 Chronic Kidney Disease Staging per NKF: Stage I & II GFR >=60 Normal to Mildly Decreased Stage III GFR 30-59 Moderately Decreased Stage IV GFR 15-29 Severely Decreased Stage V GFR <15 Very Little GFR Left ESRD GFR <15 on MOLD PRESS OPERATOR 2 Testing was performed on a S LIGHTLY hemolyzed specimen. Suggest recollection of specimen for more accurate test results. Procedures Date Code Description Status 12/13/2020 31707 Office/Outpatient Established Mo d MDM 30-39 Min Completed 12/04/2020 54219 Office/Outpatient Established Mo d MDM 30-39 Min Completed 10/23/2020 64412 Office/Outpatient Established Mi nimal Problem(S) Completed 10/20/2020 79936 Preventive Visit Est 40-64 Yrs C ompleted Medical Devices Description No Information Available Encounters Type Date Location Provider Dx Diagnosis Office Visit 12/13/2020 1:00p Family Medicine [facility] KRISTEN Pineda R10.10 Upper abdominal pain, unspec ified R10.2 Pelvic and perineal pain Office Visit 12/04/2020 1:20p Family [facility] KRISTEN Meeks M54.50 Low back pain, unspecified K59.00 Constipation, unspecified Office Visit 10/23/2020 8:00a [facility] Momo glass Z11.1 Encounter for screening for respiratory tuberculosis Office Visit 10/20/2020 8:40a Family [facility] Angela Alvarez D.O. Z00.00 Encntr for [...] 01/19/2021 1:20 pm - KRISTEN Pineda at [facility] * 10/22/2021 11:00 am - Angela Alvarez D.O. at [facility] Functional Status Description No Information Available Mental Status Description No Information Available Referrals Refer to Reason for Referral Status Appt Date Raji Savage M.D. This is a 49 year female wit h family history of ischemic heart disease who would like to be evaluated based on risk factors. Please evaluate and treat. Sent 02/14/2021 [facility] [address] [facility] 6 [place] [address] [phone] Raymundo Amanda M.D. This is a 49 year old female due for screening colonoscopy. Please evaluate and treat. Closed 10/26/[address] [id number] [phone]
--- OUTSIDE RECORDS SUMMARY | 2021-01-16 08:06 | CCD | Continuity of Care Document ---
Author Author Inocencia ALVAREZ D.O. Organization Unknown Address [address] [place] [address] Phone [phone] Care Team Providers Care Erco Machine Operator Name Role Phone Angela Alvarez D.O. AUTM Tammy Zeng M.D. AUTM [phone] Problems Active Problems Provider Date Neoplastic disease [...] CPT Code Status Date Vaccine Lot # 34460 Given 10/20/2020 TB Intradermal Test [id number] 56756 Given 08/27/2019 TB Intradermal Test 62615 Given 08/27/2019 TB Intradermal Test [id number] 28085 Given 03/23/2018 TB Intradermal Test [id number] Vital Signs Date Vital Result Comment 10/20/2020 8:46am BP Systolic 126 mmHg BP Diastolic 84 mmHg Height 64.2 inches 5'4.20" Weight 203.00 lb BMI (Body Mass Index) 34.6 kg/m2 Heart Rate 76 /min Respiratory Rate 18 /min Body Temperature 98.1 F O2 % BldC Oximetry 99 % [place] Body Weight 120 lb 03/01/2020 9:05am BP Systolic 118 mmHg BP Diastolic 78 mmHg Height 64.2 inches 5'4.20" Weight 224.00 lb BMI (Body Mass Index) 38.2 kg/m2 Heart Rate 90 /min Respiratory Rate 20 /min Body Temperature 98.3 F O2 % BldC Oximetry 98 % [place] Body Weight 120 lb Results Description No Information Available Procedures Date Code Description Status 10/20/2020 29743 Preventive Visit Est 40-64 Yrs C ompleted Medical Devices Description No Information Available Encounters Type Date Location Provider Dx Diagnosis Office Visit 10/20/2020 8:40a Family Medicine [facility][1] Angela Alvarez D.O. Z00.00 Encntr for general [...] 4.9, adult Assessments Date Code Description Provider 10/20/2020 Z00.00 Encounter for genera l adult [...] Allergy status to other antibiot ic agents Sampson AnnORudy 10/20/2020 Z88.8 Allergy status to other drugs, m edicaments and biological brown Angela Alvarez D.O. 10/20/2020 E78.2 Mixed hyperlipidemia Sampson DukeORudy 10/20/2020 E66.09 Other obesity due to excess gio charlie Angela Alvarez D.O. 10/20/2020 Z68.34 Body mass index [BMI] 34.0-34.9, adult Angela Alvarez D.O. Plan of Treatment Future Appointment(s):* 10/22/2021 11:00 am - Angela Alvarez D.O. at [facility] * 10/23/2020 8:00 am - Nurse at [facility] Functional Status Description No Information Available Mental Status Description No Information Available Referrals Refer to Reason for Referral Status Appt Date Raymundo Amanda M.D. This is a 49 year old female due for screening colonoscopy. Please evaluate and treat. Created 6 [facility] [address] [place] [address] [phone] Raji Savage M.D. This is a 49 year female wit h family history of ischemic heart disease who would like to be evaluated based on risk factors. Please evaluate and treat. Created [facility] [address] [facility] 6 [place] [address] [phone]
--- OUTSIDE RECORDS SUMMARY | 2021-01-16 08:06 | CCD ---
Author Author [facility] Organization [facility] Address Unknown Phone Unavailable Care Team Providers Care Tank Pumper Panelboard Name Role Phone MEDENT_[id number], NA Unavailable Unavailable ReyndersFloresita MD Unavailable Unavailable Reynders, Floresita Barrios MD Unavailable Unavailable Reynders, L Sophie MARRUFO Unavailable Unavailable Reynders, Floresita Barrios MD Unavailable Unavailable Reynders, Floresita Barrios MD Unavailable Unavailable Reynders, Floresita Barrios MD Unavailable Unavailable Reynders, Floresita Barrios MD Unavailable Unavailable Reynders, Floresita Barrios MD Unavailable Unavailable Reynders, Floresita Barrios MD Unavailable Unavailable Reynders, Floresita Barrios MD Unavailable Unavailable Reynders, Floresita Barrios MD Unavailable Unavailable Reynders, Floresita Barrios MD Unavailable Unavailable Reynders, L Sophie MARRUFO Unavailable Unavailable Reynders, Floresita Barrios MD Unavailable Unavailable Reynders, L Sophie MARRUFO Unavailable Unavailable Reynders, L Sophie MARRUFO Unavailable Unavailable Reynders, L Sophie Unavailable Unavailable Reynders, L Sophie Unavailable Unavailable Reynders, L Sophie Unavailable Unavailable Reynders, L Sophie Unavailable Unavailable Reynders, L Sophie Unavailable Unavailable Reynders, L Sophie Unavailable Unavailable Reynders, L Sophie MARRUFO Unavailable Unavailable Reynders, L Sophie Unavailable Unavailable Reynders, L Sophie Unavailable Unavailable Reynders, L Sophie Unavailable Unavailable Reynders, L Sophie Unavailable Unavailable Reynders, L Sophie Unavailable Unavailable Reynders, L Sophie MARRUFO Unavailable Unavailable Reynders, L Sophie MARRUFO Unavailable Unavailable Reynders, L Sophie MARRUFO Unavailable Unavailable Reynders, L Sophie MARRUFO Unavailable Unavailable Reynders, L Sophie Unavailable Unavailable Reynders, L Sophie MD Unavailable Unavailable Reynders, L Sophie MD Unavailable Unavailable Reynders, L Sophie MD Unavailable Unavailable Reynders, L Sophie MD Unavailable Unavailable Reynders, L Sophie MD Unavailable Unavailable Reynders, L Sophie MD Unavailable Unavailable Reynders, L Sophie MD Unavailable Unavailable Reynders, L Sophie MD Unavailable Unavailable Reynders, L Sophie MD Unavailable Unavailable Reynders, L Sophie MD Unavailable Unavailable Reynders, L Sophie MD Unavailable Unavailable Reynders, L Sophie MD Unavailable Unavailable Reynders, L Sophie MD Unavailable Unavailable Reynders, L Sophie MD Unavailable Unavailable Reynders, L Sophie MD Unavailable Unavailable Reynders, L Sophie MD Unavailable Unavailable Reynders, L Sophie MD Unavailable Unavailable Reynders, L Sophie MD Unavailable Unavailable Reynders, L Sophie MD Unavailable Unavailable Reynders, L Sophie MD Unavailable Unavailable Reynders, L Sophie MD Unavailable Unavailable Reynders, L Sophie MD Unavailable Unavailable Reynders, L Sophie MD Unavailable Unavailable Reynders, L Sophie MD Unavailable Unavailable Reynders, L Sophie MD Unavailable Unavailable Reynders, L Sophie MD Unavailable Unavailable Reynders, L Sophie MD Unavailable Unavailable Reynders, L Sophie MD Unavailable Unavailable Reynders, L Sophie MD Unavailable Unavailable Reynders, L Sophie MD Unavailable Unavailable Reynders, L Sophie MD Unavailable Unavailable Reynders, L Sophie MD Unavailable Unavailable Reynders, L Sophie MD Unavailable Unavailable Reynders, L Sophie MD Unavailable Unavailable Reynders, L Sophie MD Unavailable Unavailable Reynders, L Sophie MD Unavailable Unavailable Reynders, L Sophie MD Unavailable Unavailable Reynders, L Sophie MD Unavailable Unavailable Reynders, L Sophie MD Unavailable Unavailable Reynders, L Sophie MD Unavailable Unavailable Reynders, L Sophie MD Unavailable Unavailable Reynders, L Sophie MD Unavailable Unavailable Reynders, L Sophie MD Unavailable Unavailable Reynders, L Sophie MD Unavailable Unavailable Reynders, L Sophie MD Unavailable Unavailable Reynders, L Sophie MD Unavailable Unavailable Reynders, L Sophie MD Unavailable Unavailable Reynders, L Sophie MD Unavailable Unavailable Chester, Brandon PA Unavailable Unavailable Chester, Brandon PA Unavailable Unavailable Chester, Brandon PA Unavailable Unavailable Chester, Brandon PA Unavailable Unavailable Chester, Brandon PA Unavailable Unavailable Chester, Brandon PA Unavailable Unavailable Chester, Brandon PA Unavailable Unavailable Chester, Brandon PA Unavailable Unavailable Chester, Brandon PA Unavailable Unavailable Chester, Brandon PA Unavailable Unavailable Chester, Brandon PA Unavailable Unavailable Chester, Brandon PA Unavailable Unavailable Chester, Brandon PA Unavailable Unavailable Chester, Brandon PA Unavailable Unavailable Chester, Brandon PA Unavailable Unavailable Chester, Brandon PA Unavailable Unavailable Chester, Brandon PA Unavailable Unavailable Chester, Brandon PA Unavailable Unavailable Chester, Brandon PA Unavailable Unavailable Chester, Brandon PA Unavailable Unavailable Chester, Brandon PA Unavailable Unavailable Chester, Brandon PA Unavailable Unavailable Chester, Brandon PA Unavailable Unavailable Chester, Brandon PA Unavailable Unavailable Chester, Brandon PA Unavailable Unavailable Chester, Brandon PA Unavailable Unavailable Chester, Brandon PA Unavailable Unavailable Chester, Brandon PA Unavailable Unavailable Chester, Brandon PA Unavailable Unavailable Chester, Brandon PA Unavailable Unavailable Chester, Brandon PA Unavailable Unavailable Chester, Brandon PA Unavailable Unavailable Chester, Brandon PA Unavailable Unavailable Chester, Brandon PA Unavailable Unavailable Chester, Brandon PA Unavailable Unavailable Chester, Brandon PA Unavailable Unavailable Chester, Brandon PA Unavailable Unavailable Chester, Brandon PA Unavailable Unavailable Chester, Brandon PA Unavailable Unavailable Chester, Brandon PA Unavailable Unavailable Chester, Brandon PA Unavailable Unavailable Chester, Brandon PA Unavailable Unavailable Chester, Brandon PA Unavailable Unavailable Chester, Brandon PA Unavailable Unavailable Chester, Brandon PA Unavailable Unavailable Chester, Brandon PA Unavailable Unavailable Chester, Brandon PA Unavailable Unavailable Chseter, Brandon PA Unavailable Unavailable Chester, Brandon PA Unavailable Unavailable Chester, Brandon PA Unavailable Unavailable Chester, Brandon PA Unavailable Unavailable Chester, Brandon PA Unavailable Unavailable Chester, Brandon PA Unavailable Unavailable Chester, Brandon PA Unavailable Unavailable ENDY-NAVEEN, HARPREET DO Unavailable Unavailable ENDY-NAVEEN, HARPREET DO Unavailable Unavailable ENDY-NAVEEN, HARPREET DO Unavailable Unavailable ENDY-NAVEEN, HARPREET DO Unavailable Unavailable ENDY-NAVEEN, HARPREET DO Unavailable Unavailable ENDY-NAVEEN, HARPREET DO Unavailable Unavailable ENDY-NAVEEN, HARPREET DO Unavailable Unavailable ENDY-NAVEEN, HARPREET DO Unavailable Unavailable ENDY-NAVEEN, HARPREET DO Unavailable Unavailable ENDY-NAVEEN, HARPREET DO Unavailable Unavailable ENDY-NAVEEN, HARPREET DO Unavailable Unavailable ENDY-NAVEEN, HARPREET DO Unavailable Unavailable ENDY-NAVEEN, HARPREET DO Unavailable Unavailable ENDY-NAVEEN, HARPREET DO Unavailable Unavailable ENDY-NAVEEN, HARPREET DO Unavailable Unavailable ENDY-NAVEEN, HARPREET DO Unavailable Unavailable ENDY-NAVEEN, HARPREET DO Unavailable Unavailable ENDY-NAVEEN, HARPREET DO Unavailable Unavailable ENDY-NAVEEN, HARPREET DO Unavailable Unavailable ENDY-NAVEEN, HARPREET DO Unavailable Unavailable ENDY-NAVEEN, HARPREET DO Unavailable Unavailable ENDY-NAVEEN, HARPREET DO Unavailable Unavailable ENDY-NAVEEN, HARPREET DO Unavailable Unavailable ENDY-NAVEEN, HARPREET DO Unavailable Unavailable ENDY-NAVEEN, HARPREET DO Unavailable Unavailable ENDY-NAVEEN, HARPREET DO Unavailable Unavailable ENDY-NAVEEN, HARPREET DO Unavailable Unavailable ENDY-NAVEEN, HARPREET DO Unavailable Unavailable ENDY-NAVEEN, HARPREET DO Unavailable Unavailable ENDY-NAVEEN, HARPREET DO Unavailable Unavailable ENDY-NAVEEN, HARPREET DO Unavailable Unavailable ENDY-NAVEEN, HARPREET DO Unavailable Unavailable ENDY-NAVEEN, HARPREET DO Unavailable Unavailable ENDY-NAVEEN, HARPREET DO Unavailable Unavailable ENDY-NAVEEN, HARPREET DO Unavailable Unavailable ENDY-NAVEEN, HARPREET DO Unavailable Unavailable ENDY-NAVEEN, HARPREET DO Unavailable Unavailable ENDY-NAVEEN, HARPREET DO Unavailable Unavailable ENDY-NAVEEN, HARPREET DO Unavailable Unavailable ENDY-NAVEEN, HARPREET DO Unavailable Unavailable ENDY-NAVEEN, HARPREET DO Unavailable Unavailable ENDY-NAVEEN, HARPREET DO Unavailable Unavailable ENDY-NAVEEN, HARPREET DO Unavailable Unavailable ENDY-NAVEEN, HARPREET DO Unavailable Unavailable ENDY-NAVEEN, HARPREET DO Unavailable Unavailable ENDY-NAVEEN, HARPREET DO Unavailable Unavailable ENDY-NAVEEN, HARPREET DO Unavailable Unavailable ENDY-NAVEEN, HARPREET DO Unavailable Unavailable ENDY-NAVEEN, HARPREET DO Unavailable Unavailable ENDY-NAVEEN, HARPREET DO Unavailable Unavailable ENDY-NAVEEN, HARPREET DO Unavailable Unavailable ENDY-NAVEEN, HARPREET DO Unavailable Unavailable ENDY-NAVEEN, HARPREET DO Unavailable Unavailable ENDY-NAVEEN, HARPREET DO Unavailable Unavailable ENDY-NAVEEN, HARPREET DO Unavailable Unavailable ENDY-NAVEEN, HARPREET DO Unavailable Unavailable ENDY-NAVEEN, HARPREET DO Unavailable Unavailable ENDY-NAVEEN, HARPREET DO Unavailable Unavailable ENDY-NAVEEN, HARPREET DO Unavailable Unavailable ENDY-NAVEEN, HARPREET DO Unavailable Unavailable ENDY-NAVEEN, HARPREET DO Unavailable Unavailable ENDY-NAVEEN, HARPREET DO Unavailable Unavailable ENDY-NAVEEN, HARPREET DO Unavailable Unavailable ENDY-NAVEEN, HARPREET DO Unavailable Unavailable ENDY-NAVEEN, HARPREET DO Unavailable Unavailable ENDY-NAVEEN, HARPREET DO Unavailable Unavailable ENDY-NAVEEN, HARPREET DO Unavailable Unavailable ENDY-NAVEEN, HARPREET DO Unavailable Unavailable ENDY-NAVEEN, HARPREET DO Unavailable Unavailable ENDY-NAVEEN, HARPREET DO Unavailable Unavailable ENDY-NAVEEN, HARPREET DO Unavailable Unavailable ENDY-NAVEEN, HARPREET DO Unavailable Unavailable ENDY-NAVEEN, HARPREET DO Unavailable Unavailable ENDY-NAVEEN, HARPREET DO Unavailable Unavailable ENDY-NAVEEN, HARPREET DO Unavailable Unavailable ENDY-NAVEEN, HARPREET DO Unavailable Unavailable ENDY-NAVEEN, HARPREET DO Unavailable Unavailable ENDY-NAVEEN, HARPREET DO Unavailable Unavailable ENDY-NAVEEN, HARPREET DO Unavailable Unavailable ENDY-NAVEEN, HARPREET DO Unavailable Unavailable ENDY-NAVEEN, HARPREET DO Unavailable Unavailable ENDY-NAVEEN, HARPREET DO Unavailable Unavailable ENDY-NAVEEN, HARPREET DO Unavailable Unavailable ENDY-NAVEEN, HARPREET DO Unavailable Unavailable Paula Weathers MD Unavailable Unavailable Paula Weathers MD Unavailable Unavailable Paula Weathers MD Unavailable Unavailable Paula Weathers MD Unavailable Unavailable Paula Weathers MD Unavailable Unavailable Paula Weathers MD Unavailable Unavailable Paula Weathers MD Unavailable Unavailable Paula Weathers MD Unavailable Unavailable Paula Weathers MD Unavailable Unavailable Paula Weathers MD Unavailable Unavailable Paula Weathers MD Unavailable Unavailable Paula Weathers MD Unavailable Unavailable Paula Weathers MD Unavailable Unavailable Paula Weathers MD Unavailable Unavailable Paula Weathers MD Unavailable Unavailable Paula Weathers MD Unavailable Unavailable Paula Weathers MD Unavailable Unavailable Paula Weathers MD Unavailable Unavailable Paula Weathers MD Unavailable Unavailable Paula Weathers MD Unavailable Unavailable Paula Weathers MD Unavailable Unavailable Paula Weathers MD Unavailable Unavailable Paula Weathers MD Unavailable Unavailable Paula Weathers MD Unavailable Unavailable Paula Weathers MD Unavailable Unavailable Paula Weathers MD Unavailable Unavailable Paula Weathers MD Unavailable Unavailable Paula Weathers MD Unavailable Unavailable Paula Weathers MD Unavailable Unavailable Paula Weathers MD Unavailable Unavailable Paula Weathers MD Unavailable Unavailable Paula Weathers MD Unavailable Unavailable Paula Weathers MD Unavailable Unavailable Paula Weathers MD Unavailable Unavailable ALEJANDRO, CAMRON PA Unavailable Unavailable ALEJANDRO, CAMRON PA Unavailable Unavailable ALEJANDRO, CAMRON PA Unavailable Unavailable ALEJANDRO, CAMRON PA Unavailable Unavailable ALEJANDRO, CAMRON PA Unavailable Unavailable ALEJANDRO, CAMRON PA Unavailable Unavailable ALEJANDRO, CAMRON PA Unavailable Unavailable ALEJANDRO, CAMRON PA Unavailable Unavailable ALEJANDRO, CAMRON PA Unavailable Unavailable ALEJANDRO, CAMRON PA Unavailable Unavailable ALEJANDRO, CAMRON PA Unavailable Unavailable ALEJANDRO, CAMRON PA Unavailable Unavailable ALEJANDRO, CAMRON PA Unavailable Unavailable ALEJANDRO, CAMRON PA Unavailable Unavailable ALEJANDRO, CAMRON PA Unavailable Unavailable ALEJANDRO, CAMRON PA Unavailable Unavailable ALEJANDRO, CAMRON PA Unavailable Unavailable ALEJANDRO, CAMRON PA Unavailable Unavailable ALEJANDRO, CAMRON PA Unavailable Unavailable ALEJANDRO, CAMRON PA Unavailable Unavailable ALEJANDRO, CAMRON PA Unavailable Unavailable ALEJANDRO, CAMRON PA Unavailable Unavailable ALEJANDRO, CAMRON PA Unavailable Unavailable ALEJANDRO, CAMRON PA Unavailable Unavailable ALEJANDRO, CAMRON PA Unavailable Unavailable ALEJANDRO, CAMRON PA Unavailable Unavailable ALEJANDRO, CAMRON PA Unavailable Unavailable ALEJANDRO, CAMRON PA Unavailable Unavailable ALEJANDRO, CAMRON PA Unavailable Unavailable ALEJANDRO, CAMRON PA Unavailable Unavailable ALEJANDRO, CAMRON PA Unavailable Unavailable ALEJANDRO, CAMRON PA Unavailable Unavailable ALEJANDRO, CAMRON PA Unavailable Unavailable ALEJANDRO, CAMRON PA Unavailable Unavailable ALEJANDRO, CAMRON PA Unavailable Unavailable ALEJANDRO, CAMRON PA Unavailable Unavailable O'Patti sawyer PA Unavailable Unavailable Omar'Patti sawyer PA Unavailable Unavailable Omar'Patti sawyer PA Unavailable Unavailable Omar'Patti sawyer PA Unavailable Unavailable Omar'digna, A Shraddha PA Unavailable Unavailable O'digna, A Shraddha PA Unavailable Unavailable O'digna, A Shraddha PA Unavailable Unavailable O'digna, A Shraddha PA Unavailable Unavailable O'digna, A Shraddha PA Unavailable Unavailable O'digna, A Shraddha PA Unavailable Unavailable O'digna, A Shraddha PA Unavailable Unavailable O'digna, A Shraddha PA Unavailable Unavailable O'digna, A Shraddha PA Unavailable Unavailable O'digna, A Shraddha PA Unavailable Unavailable O'digna, A Shraddha PA Unavailable Unavailable O'digna, A Shraddha PA Unavailable Unavailable O'digna, A Shraddha PA Unavailable Unavailable O'digna, A Shraddha PA Unavailable Unavailable O'digna, A Shraddha PA Unavailable Unavailable O'digna, A Shraddha PA Unavailable Unavailable O'digna, A Shraddha PA Unavailable Unavailable O'digna, A Shraddha PA Unavailable Unavailable O'digna, A Shraddha PA Unavailable Unavailable O'digna, A Shraddha PA Unavailable Unavailable O'digna, A Shraddha PA Unavailable Unavailable O'digna, A Shraddha PA Unavailable Unavailable O'digna, A Shraddha PA Unavailable Unavailable O'digna, A Shraddha PA Unavailable Unavailable O'digna, A Shraddha PA Unavailable Unavailable O'digna, A Shraddha PA Unavailable Unavailable O'digna, A Shraddha PA Unavailable Unavailable O'digna, A Shraddha PA Unavailable Unavailable O'digna, A Shraddha PA Unavailable Unavailable Katt Braxton PA Unavailable Unavailable Walker, L Linda RPA Unavailable Unavailable Walker, L Linda RPA Unavailable Unavailable Walker, L Linda RPA Unavailable Unavailable Walker, L Linda RPA Unavailable Unavailable Walker, L Linda RPA Unavailable Unavailable Walker, L Linda RPA Unavailable Unavailable Walker, L Linda RPA Unavailable Unavailable Walker, L Linda RPA Unavailable Unavailable Walker, L Linda RPA Unavailable Unavailable Walker, L Linda RPA Unavailable Unavailable Walker, L Linda RPA Unavailable Unavailable Walker, L Linda RPA Unavailable Unavailable Walker, L Linda RPA Unavailable Unavailable Walker, L Linda RPA Unavailable Unavailable Walker, L Linda RPA Unavailable Unavailable Walker, L Linda RPA Unavailable Unavailable Walker, L Linda RPA Unavailable Unavailable Walker, L Linda RPA Unavailable Unavailable Walker, L Linda RPA Unavailable Unavailable Walker, L Linda RPA Unavailable Unavailable Walker, L Linda RPA Unavailable Unavailable Walker, L Linda RPA Unavailable Unavailable Walker, L Linda RPA Unavailable Unavailable Walker, L Linda RPA Unavailable Unavailable Walker, L Linda RPA Unavailable Unavailable Walker, L Linda RPA Unavailable Unavailable Walker, L Linda RPA Unavailable Unavailable Walker, L Linda RPA Unavailable Unavailable Walker, L Linda RPA Unavailable Unavailable Walker, L Linda RPA Unavailable Unavailable Walker, L Linda RPA Unavailable Unavailable Walker, L Linda RPA Unavailable Unavailable Braxton, J Oswaldo PA Unavailable [phone] Braxton, J Oswaldo PA Unavailable [phone] Braxton, J Oswaldo PA Unavailable [phone] Braxton, J Oswaldo PA Unavailable [phone] Braxton, J Oswaldo PA Unavailable [phone] Braxton, J Oswaldo PA Unavailable [phone] Braxton, J Oswaldo PA Unavailable [phone] Braxton, J Oswaldo PA Unavailable [phone] Braxton, J Oswaldo PA Unavailable [phone] Braxton, J Oswaldo PA Unavailable [phone] Braxton, J Oswaldo PA Unavailable [phone] Braxton, J Oswaldo PA Unavailable [phone] Braxton, J Oswaldo PA Unavailable [phone] Yair FARRAR MD Unavailable Unavailable Yair FARRAR MD Unavailable Unavailable Yair FARRAR MD Unavailable Unavailable Yair FARRAR MD Unavailable Unavailable Re-disclosure Warning The records that you are about to access may contain information from federally-assisted alcohol or drug abuse programs. If such information is present, then the following federally mandated warning applies: This information has been disclosed to you from records protected by federal confidentiality rules (42 CFR part 2). The federal rules prohibit you from making any further disclosure of this information unless further disclosure is expressly permitted by the written consent of the person to whom it pertains or as otherwise permitted by 42 CFR part 2. A general authorization for the release of medical or other information is NOT sufficient for this purpose. The Federal rules restrict any use of the information to criminally investigate or prosecute any alcohol or drug abuse patient.The records that you are about to access may contain highly sensitive health information, the redisclosure of which is protected by Article 27-F of the [facility] Public Health law. If you continue you may have access to information: Regarding HIV / AIDS; Provided by facilities licensed or operated by the [facility] of Mental Health; or Provided by the [facility] Office for People With Developmental Disabilities. If such information is present, then the following [facility] mandated warning applies: This information has been disclosed to you from confidential records which are protected by state law. State law prohibits you from making any further disclosure of this information without the specific written consent of the person to whom it pertains, or as otherwise permitted by law. Any unauthorized further disclosure in violation of state law may result in a fine or chcf sentence or both. A general authorization for the release of medical or other information is NOT sufficient authorization for further disc losure. Allergies and Adverse Reactions Type Description Substance Reaction Status Data Source(s ) [facility] Family Member Name Family Member Gender Family Member Status Date o f Status Description Data Source(s) Unknown Unknown Problem [facility] ([facility] Unknown Female Problem MEDENT ([facility]) Unknown Female Problem MEDENT ([facility]) Unknown Female Problem MEDENT ([facility]) Unknown Unknown Problem MED[facility] ([facility] Unknown Unknown Problem MED[facility] ([facility]) Unknown Unknown Problem [facility] ([facility] Encounters Encounter Providers Location Date Indications Data Source(s ) Outpatient Attender: CAMRON cheney 12/25/2020 08:25:00 AM EDT MEDENT ([facility]) Outpatient Attender: Shraddha PETERSON [facility] 12/13/2020 01:00:00 PM EDT MEDENT ([facility]) Outpatient Attender: Brandon PETERSON [facility] 12/04/2020 01:20:00 PM EDT MEDENT ([facility]) Outpatient Attender: Linda Yuan/Gómez/Ammon/Maria Dolores pascal 10/26/2020 11:15:00 AM EDT MEDENT ([facility] Outpatient Attender: ЕКАТЕРИНА HUGHES_[facility] 10/23/2020 08:00:00 AM EDT MEDENT ([facility]) Outpatient Attender: HARPREET BERNAL [facility] 10/20/2020 08:40:00 AM EDT MEDENT ([facility]) Outpatient Attender: Leo Weathers MD [facility] 09/06 09:29:00 AM EDT - 09/06/2020 09:30:00 AM EDT E03.8, E55.9, E04.2 [facility] E03.8, E55.9, E04.2 Patient discharged. Outpatient Attender: SHRADDHA FARARR MDConsultant: SHRADDHA BLANCO MD 04/05/2020 02:00:00 PM EST - 04/05/2020 03:56:00 PM [facility] Patient discharged. Outpatient Attender: Sophie Perez MD [facility] 03/10/2020 01:10:00 PM EST MEDENT ([facility]) Outpatient Attender: SHRADDHA FARRAR MDConsultant: SHRADDHA BLANCO MD 03/08/2020 01:08:00 PM [facility] Outpatient Attender: Leo Weathers MD [facility] 03/08 09:40:00 AM EST - 03/08/2020 09:41:00 AM EST [facility] Patient discharged. Outpatient Attender: HARPREET BERNAL DO [facility] 03/01/2020 08:00:00 AM EST MEDENT ([facility]) Outpatient Attender: Oswaldo PETERSON [facility] 12/27/2019 01:00:00 PM EDT [facility] Outpatient Attender: Oswaldo Braxton PAAttender: Yousuf PETERSON [facility] 12/27/2019 12:56:00 PM EDT - 12/27/2019 12:57:00 PM EDT E03. 8 [facility] E03.8 Patient discharged. Immunizations Vaccine Date Status Description Data Source(s) TB Skin test is not vaccine. 10/20/2020 09:12:00 AM EDT completed MEDENT ([facility]) COVID-19 VACCINE Moderna 04/05/2020 12:00:00 AM EST completed [employer] Vaccine Series Complete: YESThis Data wa s Submitted to [facility] Via [employer]. COVID-19 VACCINE Moderna 03/08/2020 12:00:00 AM EST completed [employer] Vaccine Series Complete: NOThis Data was Submitted to [facility] Via [employer]. Medications Medication Brand Name Start Date Product Form Dose Route Admi nistrative Instructions Pharmacy Instructions Status Indications Reaction Description Data Source(s) Amoxicillin 875 MG / Clavulanate 125 MG Oral Tablet Am oxicillin/Clavulanate Potassium 12/25/2020 12:00:00 AM EDT ORAL active MEDENT ([facility]) Omeprazole 40 MG Delayed Release Oral Capsule Omeprazole 12/13/2020 12:00:00 AM EDT ORAL active MEDENT ([facility]) Shingrix Shingrix 10/20/2020 12:00:00 AM EDT SUBCUTANEOUS active MEDENT ([facility]) Mupirocin 0.02 MG/MG Topical Ointment Mupirocin 03/10/2020 12:00:00 AM EST active MEDENT ( [facility]) Prednisone 20 MG Oral Tablet Prednisone 03/01/2020 12:00:00 AM EST ORAL active MEDENT ([facility]) Insurance Providers Payer name Policy type / Coverage type Policy ID Covered alliance party ID Covered alliance party's relationship to ramirez Policy Ramirez Plan Information [place]BS [place] PPO 302/307 [id number] SP [id number] [facility] Health Maintenance Organization ([facility]) [id number] Self [id number] [facility] HEALTH CARE O [id number] S [id number] [facility] Commercial [id number] Self [id number] [facility] Healthcare F [id number] SELF [id number] [facility] Healthcare F [id number] SELF [id number] [facility] Commercial [id number] Self [id number] [facility] Commercial [id number] Self [id number] [facility] Commercial [id number] Self [id number] [facility] Commercial [id number] S elf [facility] HEALTH INSURANCE COMPANY-O/P [id number] 18 [id number] [facility] Commercial [id number] Self [facility] Health Maintenance Organization (HMO) [id number] Se lf BC/BS Of [facility] [id number] Self [facility] PHY [id number] SP [id number] [facility] BCBS P [id number] S VYS [id number] [facility] HEALTH CARE [id number] SP [id number] [facility] SELECT CARE [id number] S [id number] Problems, Conditions, and Diagnoses Code Display Name Description Problem Type Effective Dates Data Source(s) E04.2 Nontoxic multinodular goiter NONTOXIC MULTINODULAR GOI TER Diagnosis 09/06/2020 09:29:00 AM EDT [facility] E55.9 Vitamin D deficiency, unspecified VITAMIN D DEFI CIENCY, UNSPECIFIED Diagnosis 09/06/2020 09:29:00 AM EDT [facility] E03.8 Other specified hypothyroidism OTHER SPECIFIED HYPOTHY ROIDISM Diagnosis 09/06/2020 09:29:00 AM EDT [facility] Z23 Encounter for immunization Encounter for immunization Diagnosis 04/05/2020 02:00:00 PM [facility] Z68.31 Body mass index (BMI) 31.0-31.9, adult B DERECK MASS INDEX [BMI] 31.0-31.9, ADULT Diagnosis 03/08/2020 09:40:00 AM [facility] E66.9 Obesity, unspecified OBESITY, UNSPECIFIED Diagnosis 03/08/2020 09:40:00 AM [facility] Surgeries/Procedures Procedure Description Date Indications Data Source(s) OFFICE OUTPATIENT VISIT 25 MINUTES 12/25/2020 12:00:00 AM EDT [facility] ([facility], [facility]) OFFICE OUTPATIENT VISIT 25 MINUTES 12/13/2020 12:00:00 AM EDT [facility] ([facility]) OFFICE OUTPATIENT VISIT 25 MINUTES 12/04/2020 12:00:00 AM EDT [facility] ([facility]) OFFICE OUTPATIENT NEW 45 MINUTES 10/26/2020 12:00:00 A EDT [facility] ([facility]) OFFICE OUTPATIENT VISIT 5 MINUTES 10/23/2020 12:00:00 AM EDT [facility] ([facility]) PERIODIC PREVENTIVE MED EST PATIENT 40-64YRS 12:00:00 AM EDT [facility] ([facility]) OFFICE OUTPATIENT VISIT 10 MINUTES OFFICE/OUTPATIENT VISIT E ST 09/06/2020 12:00:00 AM [facility] THYROXINE FREE ASSAY OF FREE THYROXINE 09/06/2020 12:00:00 AM [facility] THYROID STIMULATING HORMONE TSH ASSAY THYROID STIM HORMONE 0 09/06/2020 12:00:00 AM [facility] 25 HYDROXY INCLUDES FRACTIONS IF PERFORMED VITAMIN D 25 HYDR OXY 09/06/2020 12:00:00 AM [facility] COLLECTION VENOUS BLOOD VENIPUNCTURE ROUTINE VENIPUNCTURE 12:00:00 AM [facility] Endoscopy Nasal Diagnostic 03/10/2020 12:00:00 AM EST [facility] ([facility]) Results ID Date Data Source [id number] 01/11/2021 09:00:00 AM EST [facility] ([facility]) Name Value Range Interpretation Code Description Data Rosamaria rce(s) Supporting Document(s) Coronavirus 2019 Nasopharygeal Laboratory test result [facility] ([facility]) ASSAY INFORMATION: Real Time RT-PCR NOTE: The COVID-19 assay has been cleared by the U.S. Food and Drug Administration under the Emergency Use Authorization (EUA). [facility] are designated as high complexity laboratories by the Clinical Laboratory Improvement Amendments of 1988(CLIA) and are qualified to perform this test. Not Detected ID Date Data Source [id number] 12/25/2020 12:00:00 AM EDT [facility] Name Value Range Interpretation Code Description Data Rosamaria rce(s) Supporting Document(s) SARS-CoV2 Rapid Antigen Negative [facility] This lab was ordered by [facility] and reported by [facility]. ID Date Data Source [id number] 12/02/2020 03:39:00 AM EDT [facility] ([facility]) Name Value Range Interpretation Code Description Data Rosamaria rce(s) Supporting Document(s) Lipase [Enzymatic activity/volume] in Serum or Plasma 84 U/L 73-393 Normal (applies to non-numeric results) [facility] ([facility]) ID Date Data Source [id number] 12/02/2020 03:39:00 AM EDT [facility]) Name Value Range Interpretation Code Description Data Rosamaria rce(s) Supporting Document(s) Glucose, Fasting 113 mg/dL 70-100 Above high normal [facility] ([facility]) Blood Urea Nitrogen 13 mg/dL 7-18 Normal (applies to non-nume amol results) [facility] ([facility]) Creatinine For GFR 0.96 mg/dL 0.55-1.30 Normal (applies to non -numeric results) [facility] ([facility]) Sodium Level 140 meq/L 136-145 Normal (applies to non-numeric res ults) [facility] ([facility]) Glomerular Filtration Rate Laboratory test result Normal (applies to non- numeric results) [facility] ([facility]) <content>Units are mL/min/1.73 m2</content>
<content></content>
<content>Chronic Kidney Disease Staging per NKF:</content>
<content></content>
<content>Stage I & II GFR >=60 Normal to Mildly Decreased</content>
<content>Stage III GFR 30-59 Moderately Decreased</content>
<content>Stage IV GFR 15-29 Severely Decreased</content>
<content>Stage V GFR <15 Very Little GFR Left</content>
<content>ESRD GFR <15 on MARINE SERVICES TECHNICIAN</content>
<content></content> Potassium Serum 4.7 meq/L 3.5-5.1 Normal (applies to non-numeric results) [facility]) Testing was performed on a SLIGHTLY hemo lyzed specimen. Suggest recollection of specimen for more accurate test results. Carbon Dioxide Level 30 meq/L 21-32 Normal (applies to non-num josafat results) [facility] ([facility]) Chloride Level 107 meq/L 98-107 Normal (applies to non-numeric r esults) [facility]) Anion Gap 3 meq/L 8-16 Below low normal [facility] ( [facility]) Calcium Level 9.0 mg/dL 8.5-10.1 Normal (applies to non-numeric re sults) [facility]) ID Date Data Source [id number] 12/02/2020 03:39:00 AM EDT [facility] ([facility]) Name Value Range Interpretation Code Description Data Rosamaria rce(s) Supporting Document(s) Ast/Sgot 25 U/L 7-37 Normal (applies to non-numeric resul ts) [facility] ([facility]) Alt/SGPT 32 U/L 12-78 Normal (applies to non-numeric resul ts) [facility] ([facility]) Alkaline Phosphatase 55 U/L 45-117 Normal (applies to non-num josafat results) [facility] ([facility]) Bilirubin,Total 0.3 mg/dL 0.2-1.0 Normal (applies to non-numeric results) [facility] ([facility]) Bilirubin,Direct Laboratory test result 0.0-0.2 Normal ( applies to non-numeric results) [facility] ([facility]) Albumin 4.0 GM/DL 3.2-5.2 Normal (applies to non-numeric resul ts) [facility] ([facility]) Total Protein 7.1 GM/DL 6.4-8.2 Normal (applies to non-numeric re sults) [facility] ([facility]) Albumin/Globulin Ratio 1.3 1.2-2.2 Normal (applies to non-n umeric results) [facility] ([facility]) ID Date Data Source [id number] 12/02/2020 03:39:00 AM EDT [facility] ([facility]) Name Value Range Interpretation Code Description Data Rosamaria rce(s) Supporting Document(s) Appearance, Urine RFX Laboratory test result Nor mal (applies to non-numeric results) [facility] ([facility]) Color, Urine RFX Laboratory test result Normal ( applies to non-numeric results) [facility] ([facility]) PH,Urine RFX 5.0 units 5.0-9.0 Normal (applies to non-numeric res ults) [facility] ([facility]) Protein, Urine Auto RFX Laboratory test result N ormal (applies to non-numeric results) [facility] ([facility]) Specific Carmine Ur Auto RFX 1.009 1.002-1.035 Nor mal (applies to non-numeric results) [facility] ([facility]) Glucose, Urine (Ua) Auto RFX Laboratory test result Normal (applies to non- numeric results) [facility] ([facility]) Ketone, Urine Auto RFX Laboratory test result No rmal (applies to non-numeric results) [facility] ([facility]) Urobilinogen, Urine Auto RFX 0.2 mg/dL 0.0-2.0 Nor mal (applies to non-numeric results) [facility] ([facility]) Nitrite, Urine Auto RFX Laboratory test result N ormal (applies to non-numeric results) [facility] ([facility]) Bilirubin, Urine Auto RFX Laboratory test result Normal (applies to non- numeric results) [facility] ([facility]) Blood, Urine Blood RFX Laboratory test result No rmal (applies to non-numeric results) [facility] ([facility]) Leukocyte Esterase Ur Auto RFX Laboratory test result Normal (applies to non- numeric results) [facility] ([facility]) WBC, Urine Auto RFX 1 /HPF 0-3 Normal (applies to non-nume amol results) [facility] ([facility]) Bacteria, Urine Auto RFX Laboratory test result Normal (applies to non-numeric results) [facility] ([facility]) RBC, Urine Auto RFX 1 /HPF 0-3 Normal (applies to non-nume amol results) [facility] ([facility]) Hyaline Cast, Urine Auto RFX 0 /LPF 0-1 Normal (appl ies to non-numeric results) [facility] ([facility]) Squam Epithelial Cell Ur Aurfx 2 /HPF 0-6 N ormal (applies to non-numeric results) [facility] ([facility]) ID Date Data Source [id number] 12/02/2020 03:39:00 AM EDT [facility] ([facility]) Name Value Range Interpretation Code Description Data Rosamaria rce(s) Supporting Document(s) Red Blood Count 4.24 10 4.00-5.40 Normal (applies to non-numeric results) [facility] ([facility]) White Blood Count 6.5 10 4.0-10.0 Normal (applies to non-numeri c results) [facility] ([facility]) Hemoglobin 12.0 g/dL 12.0-15.5 Normal (applies to non-numeric resul ts) [facility] ([facility]) Hematocrit 36.8 % 36.0-47.0 Normal (applies to non-numeric resul ts) [facility] ([facility]) Mean Corpuscular Volume 86.8 fl 80.0-96.0 Normal ( applies to non-numeric results) [facility] ([facility]) Mean Corpuscular Hemoglobin 28.3 pg 27.0-33.0 Norm al (applies to non-numeric results) [facility] ([facility]) Mean Corpuscular HGB Conc 32.6 g/dL 32.0-36.5 Normal (applies to non-numeric results) [facility] ([facility]) Red Cell Distribution Width 12.4 % 11.5-14.5 Norm al (applies to non-numeric results) [facility] ([facility]) Platelet Count, Automated 282 10 150-450 Normal (applies to non-numeric results) [facility] ([facility]) Neutrophils % 49.0 % 36.0-66.0 Normal (applies to non-numeric re sults) [facility] ([facility]) Lymph % 37.9 % 24.0-44.0 Normal (applies to non-numeric resul ts) [facility] ([facility]) Page % 8.7 % 2.0-8.0 Above high normal [facility] ([facility]) Eos % 3.7 % 0.0-3.0 Above high normal [facility] ([facility]) Baso % 0.5 % 0.0-1.0 Normal (applies to non-numeric resul ts) [facility] ([facility]) Immature Granulocyte % 0.2 % 0-3.0 Normal (applies to non-n umeric results) [facility] ([facility]) Nucleated Red Blood Cell % 0.0 % 0-0 Normal (applies to n on-numeric results) [facility] ([facility]) Neutrophils # 3.2 10 1.5-8.5 Normal (applies to non-numeric re sults) [facility] ([facility]) Page # 0.6 10 0.0-0.8 Normal (applies to non-numeric resul ts) [facility] ([facility]) Lymph # 2.5 10 1.5-5.0 Normal (applies to non-numeric resul ts) [facility] ([facility]) Eos # 0.2 10 0.0-0.5 Normal (applies to non-numeric resul ts) [facility] ([facility]) Baso # 0.0 10 0.0-0.2 Normal (applies to non-numeric resul ts) [facility] ([facility]) ID Date Data Source [id number] 11/18/2020 12:00:00 AM EDT [facility] Name Value Range Interpretation Code Description Data Rosamaria rce(s) Supporting Document(s) SARS-CoV2 Rapid Antigen Negative [facility] This lab was reported by [facility]. ID Date Data Source [id number] 09/06/2020 11:57:00 AM EDT [facility] Name Value Range Interpretation Code Description Data Rosamaria rce(s) Supporting Document(s) Vitamin D,Total (25OH) 30.0-100.0 Below low normal [facility] Reference Range: <10 ng/mL: Deficien t 10-30 ng/mL: Insufficient 30-100 ng/mL: Sufficient >100 ng/mL: Toxicity possible ID Date Data Source [id number] 09/06/2020 11:57:00 AM EDT [facility] Name Value Range Interpretation Code Description Data Rosamaria rce(s) Supporting Document(s) Free T4 (Free Thyroxine) 0.76-1.46 Normal (applies to non -numeric results) [facility] ID Date Data Source [id number] 09/06/2020 11:57:00 AM EDT [facility] Name Value Range Interpretation Code Description Data Rosamaria rce(s) Supporting Document(s) Thyroid Stimulate Hormone TSH 0.358-3.740 No rmal (applies to non-numeric results) [facility] ID Date Data Source [id number] 04/25/2020 12:00:00 AM EST [facility] Name Value Range Interpretation Code Description Data Rosamaria rce(s) Supporting Document(s) SARS-CoV2 Rapid Antigen Negative [facility] This lab was ordered by [facility] and reported by [facility]. ID Date Data Source [id number] 02/28/2020 12:00:00 AM EST [facility] Leo Weathers MD Patient Name: KARLA BENDER[address] Date of : Floor Date of Exam: 02/28/2020CHRISTINA Santa [id number]#: Fax: [phone] EXAM: US HEAD AND NECK SOFT TISSUECLINICAL INFORMATION: Nontoxic goiter.Priors: 11/20/2017.ISTHMUS: 0.3 cm thickRIGHT LOBE: 4.2 x 0.9 x 1.4 cm LEFT LOBE: 3.9 x 1.2 x 1.2 cmThere is an unchanged 1 cm sized small nodule seen in the right anteriorsoft tissues adjacent to the thyroid itself which is completely stable.The thyroid parenchymal echo pattern is heterogeneous but no discretemasses have developed since the last exam.Accredited by the [employer] in General Ultrasound.HALEY Mason/Conrad you for referring KARLA BENDER to our office. Electronically Signed - CHETNA BEST DO 02/29/20 10:41 Name Value Range Interpretation Code Description Data Rosamaria rce(s) Supporting Document(s) ID Date Data Source [id number] 12/27/2019 06:31:00 PM EDT [facility] Name Value Range Interpretation Code Description Data Rosamaria rce(s) Supporting Document(s) Free T4 (Free Thyroxine) 0.76-1.46 Normal (applies to non -numeric results) [facility] ID Date Data Source [id number] 12/27/2019 06:31:00 PM EDT [facility] Name Value Range Interpretation Code Description Data Rosamaria rce(s) Supporting Document(s) Thyroid Stimulate Hormone TSH 0.358-3.740 No rmal (applies to non-numeric results) [facility] Procedure Social History Code Duration Value Status Description Data Source(s ) Smoking 12/25/2020 12:00:00 AM EDT Patient has never smoked co mpleted Patient has never smoked [facility] ([facility], [facility]) Smoking 10/20/2020 12:00:00 AM EDT Patient has never smoked co mpleted Patient has never smoked [facility] ([facility]) Vital Signs ID Date Data Source [id number] Name Value Range Interpretation Code Description Data Source(s) Body weight 205.00 [lb_av] 205.00 [lb_av] [facility] T ([facility], [facility]) Systolic blood pressure 134 mm[Hg] 134 mm[Hg] M [facility] ([facility], [facility]) Diastolic blood pressure 89 mm[Hg] 89 mm[Hg] [facility] ([facility]) Heart rate 90 /min 90 /min [facility] ([facility], [facility]) Respiratory rate 18 /min 18 /min [facility] ( [facility], [facility]) Oxygen saturation in Arterial blood by Pulse oximetry 98 % 98 % [facility] ([facility], [facility]) Body temperature 98.9 [degF] 98.9 [degF] [facility] ([facility], [facility]) Body height 65 [in_i] 65 [in_i] [facility] ([facility]) 5'5" Body mass index (BMI) [Ratio] 34.1 kg/m2 34.1 k g/m2 [facility] ([facility]) Body weight 208.00 [lb_av] 208.00 [lb_av] [facility] T ([facility]) Systolic blood pressure 132 mm[Hg] 132 mm[Hg] M [facility] ([facility]) Body height 64.2 [in_i] 64.2 [in_i] [facility] ([facility]) 5'4.20" Body mass index (BMI) [Ratio] 35.5 kg/m2 35.5 k g/m2 [facility] ([facility]) [place] body weight 120 [lb_av] 120 [lb_av] [facility] ([facility]) Diastolic blood pressure 90 mm[Hg] 90 mm[Hg] [facility] ([facility]) Heart rate 91 /min 91 /min [facility] ([facility]) Respiratory rate 20 /min 20 /min [facility] ( [facility]) Body temperature 97.9 [degF] 97.9 [degF] [facility] ([facility]) Oxygen saturation in Arterial blood by Pulse oximetry 99 % 99 % [facility] ([facility]) Body mass index (BMI) [Ratio] 35.5 kg/m2 35.5 k g/m2 [facility] ([facility]) Heart rate 85 /min 85 /min [facility] ([facility]) Body weight 208.38 [lb_av] 208.38 [lb_av] [facility] T ([facility]) Systolic blood pressure 126 mm[Hg] 126 mm[Hg] M [facility] ([facility]) Diastolic blood pressure 76 mm[Hg] 76 mm[Hg] [facility] ([facility]) Body height 64.2 [in_i] 64.2 [in_i] [facility] ([facility]) 5'4.20" Respiratory rate 18 /min 18 /min [facility] ( [facility]) Body temperature 98.8 [degF] 98.8 [degF] [facility] ([facility]) Oxygen saturation in Arterial blood by Pulse oximetry 97 % 97 % [facility] ([facility]) [place] body weight 120 [lb_av] 120 [lb_av] [facility] ([facility]) Body temperature 98.5 [degF] 98.5 [degF] [facility] ([facility], ) Systolic blood pressure 126 mm[Hg] 126 mm[Hg] [facility], ) Diastolic blood pressure 89 mm[Hg] 89 mm[Hg] [facility] ([facility], ) Body weight 201.25 [lb_av] 201.25 [lb_av] [facility] T ([facility], ) Body mass index (BMI) [Ratio] 33.5 kg/m2 33.5 k g/m2 [facility] ([facility], ) [place] body weight 125 [lb_av] 125 [lb_av] [facility] ([facility], ) Body weight 91.287 kg 91.[address] [facility] ([facility], ) Body surface area Derived from formula 1.98 m2 1.98 m2 [facility] ([facility], ) Body height 65 [in_i] 65 [in_i] [facility] ([facility], ) 5'5" Body mass index (BMI) [Ratio] 34.6 kg/m2 34.6 k g/m2 [facility] ([facility]) Heart rate 76 /min 76 /min [facility] ([facility]) Respiratory rate 18 /min 18 /min [facility] ( [facility]) Body temperature 98.1 [degF] 98.1 [degF] [facility] ([facility]) Oxygen saturation in Arterial blood by Pulse oximetry 99 % 99 % [facility] ([facility]) [place] body weight 120 [lb_av] 120 [lb_av] MEDEN T ([facility]) Systolic blood pressure 126 mm[Hg] 126 mm[Hg] [facility]) Diastolic blood pressure 84 mm[Hg] 84 mm[Hg] [facility] ([facility]) Body height 64.2 [in_i] 64.2 [in_i] [facility] ([facility]) 5'4.20" Body weight 203.00 [lb_av] 203.00 [lb_av] [facility] ([facility]) Heart rate 90 /min 90 /min [facility] ([facility]) Body mass index (BMI) [Ratio] 38.2 kg/m2 38.2 k g/m2 [facility] ([facility]) Respiratory rate 20 /min 20 /min [facility] ( [facility]) Systolic blood pressure 118 mm[Hg] 118 mm[Hg] [facility]) Diastolic blood pressure 78 mm[Hg] 78 mm[Hg] [facility] ([facility]) Body height 64.2 [in_i] 64.2 [in_i] [facility] ([facility]) 5'4.20" Body weight 224.00 [lb_av] 224.00 [lb_av] [facility] T ([facility]) Body temperature 98.3 [degF] 98.3 [degF] ELL[facility] ([facility]) Oxygen saturation in Arterial blood by Pulse oximetry 98 % 98 % [facility] ([facility]) [place] body weight 120 [lb_av] 120 [lb_av] ADELITA Hebert ([facility]) ID Date Data Source [id number] 04/05/2020 06:30:26 PM EST [facility] Name Value Range Interpretation Code Description Data Source(s) WEIGHT RECORDED 185.00 pounds 185.00 pounds Car [facility] Height 65 Inches 065 Inches [facility]
--- OUTSIDE RECORDS SUMMARY | 2021-01-16 08:06 | CCD | Continuity of Care Document ---
Author Author Inocencia ALVAREZ D.O. Organization Unknown Address [address] [place] [address] Phone [phone] Care Team Providers Care Information Systems Project Manager Name Role Phone Angela Alvarez D.O. AUTM Tammy Zeng M.D. AUTM [phone] Raji Savage M.D. AUTM [phone] Raymundo Amanda M.D. AUTM [phone] Problems Active Problems Provider Date Neoplastic disease [...] CPT Code Status Date Vaccine Lot # [id number] Given 10/20/2020 TB Intradermal Test [id number] 89787 Given 08/27/2019 TB Intradermal Test 87360 Given 08/27/2019 TB Intradermal Test [id number] 63662 Given 03/23/2018 TB Intradermal Test [id number] Vital Signs Date Vital Result Comment 10/20/2020 8:46am BP Systolic 126 mmHg BP Diastolic 84 mmHg Height 64.2 inches 5'4.20" Weight 203.00 lb BMI (Body Mass Index) 34.6 kg/m2 Heart Rate 76 /min Respiratory Rate 18 /min Body Temperature 98.1 F O2 % BldC Oximetry 99 % [place] Body Weight 120 lb 03/01/2020 9:05am BP Systolic 118 mmHg BP Diastolic 78 mmHg Height 64.2 inches 5'4.20" Weight 224.00 lb BMI (Body Mass Index) 38.2 kg/m2 Heart Rate 90 /min Respiratory Rate 20 /min Body Temperature 98.3 F O2 % BldC Oximetry 98 % [place] Body Weight 120 lb Results Description No Information Available Procedures Date Code Description Status 10/20/2020 08757 Preventive Visit Est 40-64 Yrs C ompleted Medical Devices Description No Information Available Encounters Type Date Location Provider Dx Diagnosis Office Visit 10/20/2020 8:40a [facility] Angela Alvarez D.O. Z00.00 Encntr for [...] 11:00 am - Angela Alvarez D.O. at [facility] Functional Status Description No Information Available Mental Status Description No Information Available Referrals Refer to Reason for Referral Status Appt Date Raymundo Amanda M.D. This is a 49 year old female due for screening colonoscopy. Please evaluate and treat. Sent 10/26/[address] [place] [id number] [phone] Raji Savage M.D. This is a 49 year female wit h family history of ischemic heart disease who would like to be evaluated based on risk factors. Please evaluate and treat. Sent [facility] [address] [facility] [address] [place] [address] [phone]
--- OUTSIDE RECORDS SUMMARY | 2021-01-16 08:06 | CCD | Continuity of Care Document ---
Author Author Nurse, Inocencia Organization Unknown Address [address] [facility] [address] [place] [address] Phone [phone] Care Team Providers Care Unit Reactor Operator Name Role Phone Angela Alvarez D.O. AUTM [phone] Tammy Zeng M.D. AUTM [phone] Raji Savage M.D. AUTM [phone] Raymundo Amanda M.D. AUTM [phone] Problems Active Problems Provider Date Neoplastic disease [...] CPT Code Status Date Vaccine Lot # [id number] Given 10/20/2020 TB Intradermal Test [id number] 53699 Given 08/27/2019 TB Intradermal Test 06386 Given 08/27/2019 TB Intradermal Test [id number] 96064 Given 03/23/2018 TB Intradermal Test [id number] Vital Signs Date Vital Result Comment 10/20/2020 8:46am BP Systolic 126 mmHg BP Diastolic 84 mmHg Height 64.2 inches 5'4.20" Weight 203.00 lb BMI (Body Mass Index) 34.6 kg/m2 Heart Rate 76 /min Respiratory Rate 18 /min Body Temperature 98.1 F O2 % BldC Oximetry 99 % [place] Body Weight 120 lb 03/01/2020 9:05am BP Systolic 118 mmHg BP Diastolic 78 mmHg Height 64.2 inches 5'4.20" Weight 224.00 lb BMI (Body Mass Index) 38.2 kg/m2 Heart Rate 90 /min Respiratory Rate 20 /min Body Temperature 98.3 F O2 % BldC Oximetry 98 % [place] Body Weight 120 lb Results Description No Information Available Procedures Date Code Description Status 10/20/2020 93967 Preventive Visit Est 40-64 Yrs C ompleted Medical Devices Description No Information Available Encounters Type Date Location Provider Dx Diagnosis Office Visit 10/20/2020 8:40a [facility] Angela Alvarez D.O. Z00.00 Encntr for [...] brown Andre Ann.ORudy 10/20/2020 E78.2 Mixed hyperlipidemia Sampson DukeORudy 10/20/2020 E66.09 Other obesity due to excess gio charlie Andre Ann.ORudy 10/20/2020 Z68.34 Body mass index [BMI] 34.0-34.9, adult Angela Alvarez D.O. Plan of Treatment Future Appointment(s):* 10/22/2021 11:00 am - Angela Alvarez D.O. at [facility] Functional Status Description No Information Available Mental Status Description No Information Available Referrals Refer to Reason for Referral Status Appt Date Raymundo Amanda M.D. This is a 49 year old female due for screening colonoscopy. Please evaluate and treat. Sent [address] [place] [id number] [phone] Raji Savage M.D. This is a 49 year female wit h family history of ischemic heart disease who would like to be evaluated based on risk factors. Please evaluate and treat. Sent [facility] [address] [place] [address] [phone]
[2021-01-16] MEDS ORDERED: LIDOCAINE 2% 100MG/5ML SDV (FOR ANES.) As Ordered ONE (09:21)
[2021-01-16] MEDS ORDERED: propofoL 200 MG/20 ML VIAL As Ordered ONE (09:39)
[2021-01-16] MEDS ORDERED: LIDOCAINE 1% MDV 20ML VIAL As Ordered ONE (09:39)
--- NOTE | 2021-01-16 10:03 | ROOR ---
Patient Name: Inocencia Bender Procedure Date: 01/16/2021 9:20 AM Date of : 1970 Age: 50 Room: [facility] Gender: Female Note Status: Finalized Procedure: Colonoscopy Indications: Screening for colorectal malignant neoplasm, This is the patient's first colonoscopy Providers: Raymundo Amanda MD Referring MD: Angela BERNAL DO Requesting Provider: Medicines: Monitored Anesthesia Care Complications: No immediate complications. Procedure: Pre-Anesthesia Assessment: - Prior to the procedure, a History and Physical was performed, and patient medications and allergies were reviewed. The patient is competent. The risks and benefits of the procedure and the sedation options and risks were discussed with the patient. All questions were answered and informed consent was obtained. Patient identification and proposed procedure were verified by the physician, the nurse and the bale breaker operator in the procedure room. Mental Status Examination: alert and oriented. Airway Examination: normal oropharyngeal airway and neck mobility. Prophylactic Antibiotics: The patient does not require prophylactic antibiotics. Prior Anticoagulants: The patient has taken no previous anticoagulant or antiplatelet agents. ASA Grade Assessment: II - A patient with mild systemic disease. After reviewing the risks and benefits, the patient was deemed in satisfactory condition to undergo the procedure. The anesthesia plan was to use monitored anesthesia care (MAC). Immediately prior to administration of medications, the patient was re-assessed for adequacy to receive sedatives. The heart rate, respiratory rate, oxygen saturations, blood pressure, adequacy of pulmonary ventilation, and response to care were monitored throughout the procedure. The physical status of the patient was re-assessed after the procedure. The Colonoscope was introduced through the anus and advanced to the cecum, identified by appendiceal orifice and ileocecal valve. The colonoscopy was performed without difficulty. The patient tolerated the procedure well. The quality of the bowel preparation was good. Findings: The perianal and digital rectal examinations were normal. A 4 mm polyp was found in the cecum. The polyp was sessile. The polyp was removed with a jumbo cold forceps. Resection and retrieval were complete. Estimated blood loss was minimal. A 4 mm polyp was found in the sigmoid colon. The polyp was sessile. The polyp was removed with a jumbo cold forceps. Resection and retrieval were complete. The exam was otherwise without abnormality. Impression: - One 4 mm polyp in the cecum, removed with a jumbo cold forceps. Resected and retrieved. - One 4 mm polyp in the sigmoid colon, removed with a jumbo cold forceps. Resected and retrieved. - The examination was otherwise normal. Recommendation: - Discharge patient to home. - Resume previous diet. - Continue present medications. - Await pathology results. - Return to my office as previously scheduled. Procedure Code(s): --- Professional --- 90306, Colonoscopy, flexible; with biopsy, single or multiple Diagnosis Code(s): --- Professional --- Z12.11, Encounter for screening for malignant neoplasm of colon K63.5, Polyp of colon CPT copyright 2019 [employer]. All rights reserved. The codes documented in this report are preliminary and upon iron plastic bullet maker review may be revised to meet current compliance requirements. Raymundo Amanda MD Raymundo Amanda MD 01/16/2021 10:03:11 AM Electronically signed by Raymundo Amanda MD Number of Addenda: 0 Note Initiated On: 01/16/2021 9:20 AM Estimated Blood Loss: Estimated blood loss was minimal.
[2021-01-16 10:15] VITALS: BP 118/78
== END 2021-01-16 10:30 | disposition home or self-care (01) ==
LOC: M OPP 08:01
PROVIDERS: ATTEND Surgery
DX: Z12.11 Encounter for screening for malignant neoplasm of colon (principal); K63.5 Polyp of colon; Z83.71 Family history of colonic polyps; Z79.899 Other long term (current) drug therapy; Z88.1 Allergy status to other antibiotic agents; Z88.8 Allergy status to other drugs, medicaments and biological substances

== ENCOUNTER → 2021-02-16 | Outpatient (REF) | payer OTHER ==
[~2021-02-16] MED LIST changes: -NS 1,000 ML IV ONE; -OMEP-221 PO; +OMEP40CA5 PO
== END ==
LOC: M SFHCWAGY 13:03
PROVIDERS: ATTEND Advanced Practice Midwife
DX: Z12.4 Encounter for screening for malignant neoplasm of cervix (principal)
CPT/HCPCS: 87624; G0123

== ENCOUNTER → 2021-04-16 | Outpatient (CLI) | payer OTHER | LOC: M WHC 07:50 | PROVIDERS: ATTEND Advanced Practice Midwife | DX: Z12.31 Encounter for screening mammogram for malignant neoplasm of breast (principal) ==

== ENCOUNTER → 2021-11-19 | Outpatient (REF) | payer OTHER | LOC: M LAB REF 18:56 | PROVIDERS: ATTEND Physician Assistant | DX: J02.9 Acute pharyngitis, unspecified (principal) ==

== ENCOUNTER → 2022-01-09 | Outpatient (CLI) | payer OTHER | LOC: M RAD 13:35 | PROVIDERS: ATTEND Physician Assistant | DX: M79.662 Pain in left lower leg (principal) ==

== ENCOUNTER → 2022-02-21 | Outpatient (CLI) | payer OTHER | LOC: M WHC 14:01 | PROVIDERS: ATTEND Internal Medicine | DX: E04.1 Nontoxic single thyroid nodule (principal); E03.9 Hypothyroidism, unspecified ==

== ENCOUNTER → 2023-02-12 | Outpatient (CLI) | payer OTHER | LOC: M WHC 09:09 | PROVIDERS: ATTEND Advanced Practice Midwife | DX: Z12.31 Encounter for screening mammogram for malignant neoplasm of breast (principal) ==

== ENCOUNTER → 2023-04-08 | Outpatient (CLI) | payer OTHER | LOC: M RAD 13:32 | PROVIDERS: ATTEND Nurse Practitioner Family | DX: E04.1 Nontoxic single thyroid nodule (principal) ==

== ENCOUNTER → 2023-05-23 | Outpatient (REF) | payer OTHER | LOC: M LAB REF 15:10 | PROVIDERS: ATTEND Physician Assistant | DX: J02.9 Acute pharyngitis, unspecified (principal) ==

== ENCOUNTER → 2023-06-10 | Outpatient (REF) | payer OTHER | LOC: M LAB REF 16:49 | PROVIDERS: ATTEND Physician Assistant | DX: J02.9 Acute pharyngitis, unspecified (principal) ==

== ENCOUNTER → 2023-12-04 | Outpatient (REF) | payer OTHER | LOC: M LAB REF 17:59 | PROVIDERS: ATTEND Family Medicine | DX: J06.9 Acute upper respiratory infection, unspecified (principal) ==

== ENCOUNTER → 2024-04-09 | Outpatient (CLI) | payer OTHER | LOC: M WHC 13:00 | PROVIDERS: ATTEND Obstetrics & Gynecology | DX: Z12.31 Encounter for screening mammogram for malignant neoplasm of breast (principal); R92.313 Mammographic fatty tissue density, bilateral breasts ==

== ENCOUNTER → 2024-06-03 | Outpatient (CLI) | payer OTHER | LOC: M SOG 07:10 | PROVIDERS: ATTEND Physician Assistant | DX: M79.605 Pain in left leg (principal) ==

== ENCOUNTER → 2024-06-11 | Outpatient (CLI) | payer OTHER | LOC: M RAD 14:48 | PROVIDERS: ATTEND Physician Assistant | DX: M79.605 Pain in left leg (principal); M79.89 Other specified soft tissue disorders ==

== ENCOUNTER → 2024-07-16 | Outpatient (CLI) | payer OTHER | LOC: M PLAIMG 06:36 | PROVIDERS: ATTEND Physician Assistant | DX: M79.605 Pain in left leg (principal) ==